=== PATIENT | male | born 1935 | race Caucasian/White ===

== ENCOUNTER 2023-02-20 16:35 | Inpatient (IN) | payer MEDICARE, SELFPAY ==
[2023-02-20] VITALS (7 sets, daily range): BP systolic 112–142; BP diastolic 70–81; PULSE 49–95; RESP 18–36; TEMP 36.3–36.8; O2SAT 96–98; BMI 28.5
--- NOTE | 2023-02-20 16:38 | ED_ITS ---
HPI - SOB/Dyspnea General: Chief Complaint: Shortness of Breath/Dyspnea Stated Complaint: sob Time Seen by Provider: 02/20/23 16:38 History of Present Illness: HPI Narrative: 87-year-old male presents emergency department via EMS personnel with complaints of increased shortness of breath and feeling like his heart is having strange beats. He states that his shortness of breath has become worse over the previous 3 days and that he has had a 25 pound weight gain in the past 2 weeks. He normally does not wear oxygen but has required oxygen via EMS personnel. Patient states that he was seen by his primary care provider and received a twelve-lead EKG today which demonstrated new onset atrial fibrillation is rate controlled. It does appear per his doctor office note that I reviewed his oxygen saturation on room air was marginal at 91%. He does have a history of hypertension and hypercholesterolemia as well as type 2 diabetes. He denies chest pain at present. He states he has had increased fatigue and malaise over the previous 3 days. Associated symptoms: Reports palpitations Review of Systems General: Reports: 10 or more systems reviewed and unremarkable except in HPI and below Card: Reports: palpitations, irregular heart rhythm and swelling of feet/ankles Resp: Reports: dyspnea and non-productive cough Physical Exam Narrative: EXAM NARRATIVE: Constitutional: the patient appeared well nourished and normally developed. He does appear to be slightly short of breath. Vital signs as documented. HENMT: Head exam is unremarkable. Neck is without jugular venous distension, thyromegaly, or carotid bruits. Carotid upstrokes are brisk bilaterally. Eye: No scleral icterus or corneal arcus noted Resp: Lungs are clear to auscultation and percussion. Decreased bilaterally to the bases. Cardio: Irregularly irregular heart rhythm, positive S1-S2,. No murmurs, rubs or gallops. 4+ bilateral lower extremity pitting edema to the bilateral knees encompassing the entire lower extremity GI: Abdominal exam reveals normal bowel sounds, no masses, no organomegaly and no aortic enlargement. Soft, nontender to palpation. No obvious palpable masses noted. No hepatomegaly appreciated. Extremity: Extremities are edematous- 4+. and both femoral and pedal pulses are normal. Moves all extremities well, she has sensation in all extremities. Neuro: Alert and oriented x4, person, place, time and situation. Cranial nerves II through XII are grossly intact, there is no focal neurological deficits that I can appreciate at present. Motor strength in the upper and lower extremities are equal and bilateral 5/5. Psych: Cooperative, calm, normal thought process, appropriate judgment. Skin: No lesions, rashes. Course Vital Signs: Vital signs: Vital Signs Temperature 97.5 F L 02/20/23 21:23 Pulse Rate 93 02/20/23 21:23 Respiratory Rate 24 H 02/20/23 21:23 Blood Pressure 142/81 02/20/23 21:23 Pulse Oximetry 96 02/20/23 21:23 Oxygen Delivery Me thod Nasal Cannula 02/20/23 21:23 Oxygen Flow Rate 2 02/20/23 17:21 MDM - SOB/Dyspnea Medical Decision Making Physical exam completed and documented, I did review the patient's laboratory evaluation as well as his chest x-ray. I contacted the hospital physician for admission for his new onset atrial fibrillation as well as his 4+ bilateral lower extremity pitting edema and his shortness of breath. Medical Records I reviewed the patient's medical records. I did review the patient's twelve-lead EKG that was obtained at his primary care provider's office at 1527 which demonstrates atrial fibrillation with a rate controlled 96 bpm. I reviewed the primary care providers note from the office visit today that the family members provided to me. Lab Data I reviewed the patient's lab results. 02/20/23 17:13 02/20/23 17:13 Labs/Radiology: Radiology Impressions Chest X-Ray 02/20/23 16:39 IMPRESSION: 1. Right basilar atelectasis versus pneumonia and small right pleural effusion. 2. Cardiomegaly. Chest CTA 02/20/23 18:44 IMPRESSION: 1. Negative for pulmonary embolus. 2. Large right and small left pleural effusions. 3. Cardiomegaly. 4. Coronary artery atherosclerotic calcifications. 5. Reflux of contrast into the intrahepatic veins suggestive of congestive heart failure. 6. Cholelithiasis. 7. Moderate ascites in the upper abdomen somewhat visualized. 8. Ascending thoracic aorta dilated to 4.4 cm. 9. Bilateral dependent atelectasis versus infiltrate. Next emphysematous changes. 10. Multilevel bridging degenerative calcifications throughout the spine. 11. Scattered subcentimeter short axis prominent mediastinal lymph nodes, nonspecific. Laboratory Results WBC 11.61 10^3/uL (3.29-11.43) H 02/20/23 17:13 RBC 4.84 10^6/uL (3.85-5.65) 02/20/23 17:13 Hgb 14.70 g/dL (11.27-16.99) 02/20/23 17:13 Hct 45.1 % (37-53) 02/20/23 17:13 MCV 93.2 fl (82-101) 02/20/23 17:13 MCH 30.4 pg (27-33) 02/20/23 17:13 MCHC 32.6 g/dL (30-55) 02/20/23 17:13 RDW 14.0 % (12.1-15.1) 02/20/23 17:13 Plt Count 248 10^3/cmm (157-399) 02/20/23 17:13 MPV 10.4 fL (7.4-10.4) 02/20/23 17:13 Neut % (Auto) 74.2 % 02/20/23 17:13 Lymph % (Auto) 13.1 % 02/20/23 17:13 [place] % (Auto) 10.4 % 02/20/23 17:13 Eos % (Auto) 1.4 % 02/20/23 17:13 Baso % (Auto) 0.5 % 02/20/23 17:13 Neut # (Auto) 8.61 10^3/uL (1.8-7.7) H 02/20/23 17:13 Lymph # (Auto) 1.5 10^3/uL (0.8-4.8) 02/20/23 17:13 [place] # (Auto) 1.2 10^3/uL (0.2-0.9) H 02/20/23 17:13 Eos # (Auto) 0.2 10^3/uL (0.0-0.8) 02/20/23 17:13 Baso # (Auto) 0.1 10^3/uL (0.0-0.1) 02/20/23 17:13 Nucleated RBC % (auto) 0 % 02/20/23 17:13 Nucleated RBCs # 0.0 /100WBC 02/20/23 17:13 PT 16.00 SECONDS (12.1-14.9) H 02/20/23 17:13 INR 1.24 (0.8-1.2) H 02/20/23 17:13 APTT 35.0 SECONDS (23.9-36.7) 02/20/23 17:13 D-Dimer 2.10 ug/mLFEU (0-0.59) H 02/20/23 17:13 Sodium 131 mmol/L (136-145) L 02/20/23 17:13 Potassium 5.0 mmol/L (3.5-5.1) 02/20/23 17:13 Chloride 99 mmol/L (98-107) 02/20/23 17:13 Carbon Dioxide 17 mmol/L (22-29) L 02/20/23 17:13 Anion Gap 20.0 (5-19) H 02/20/23 17:13 BUN 36 mg/dL (8-23) H 02/20/23 17:13 Creatinine 1.6 mg/dL (0.7-1.2) H 02/20/23 17:13 GFR Calculation Not Reportable 02/20/23 17:13 Glucose 156 mg/dL (65-115) H 02/20/23 17:13 Calculated Osmolality 284 mOsm/kg (285-295) L 02/20/23 17:13 Calcium 9.1 mg/dL (8.5-10.5) 02/20/23 17:13 Total Bilirubin 0.8 mg/dL (0.15-1.2) 02/20/23 17:13 AST 73 U/L (0-40) H 02/20/23 17:13 ALT 93 U/L (0-41) H 02/20/23 17:13 Alkaline Phosphatase 131 U/L (40-130) H 02/20/23 17:13 Troponin T Baseline 73 ng/L (0-15) H 02/20/23 17:13 NT-Pro-B Natriuret Pep 9307 pg/mL (0-450) H 02/20/23 17:13 Total Protein 5.6 g/dL (6.6-8.7) L 02/20/23 17:13 Albumin 3.8 g/dL (3.5-5.2) 02/20/23 17:13 Globulin 1.8 g/dL (1.3-4.6) 02/20/23 17:13 Influenza Type A Ag negative (Negative) 02/20/23 16:50 Influenza Type B Ag negative (Negative) 02/20/23 16:50 SARS-CoV-2 Ag (Rapid) negative (Negative) 02/20/23 16:50 All radiology interpretation(s) finalized by discharge ED provider radiology interpretation(s): FINDINGS: Pulmonary arteries: Normal. No pulmonary emboli. Aorta: Ascending thoracic aorta dilated to 4.4 cm. Veins: Reflux of contrast into the intrahepatic veins suggestive of congestive heart failure. Lungs: Bilateral dependent atelectasis versus infiltrate. Next emphysematous changes. Pleural spaces: Large right and small left pleural effusions. Heart: Cardiomegaly. Coronary arteries: Coronary artery atherosclerotic calcifications. Lymph nodes:? Scattered subcentimeter short axis prominent mediastinal lymph nodes, nonspecific. Gallbladder and bile ducts: Cholelithiasis. Intraperitoneal space: Moderate ascites in the upper abdomen somewhat visualized. Bones/joints: Multilevel bridging degenerative calcifications throughout the spine. Soft tissues: Unremarkable. CT/CT angio chest PE protcl [id number] IMPRESSION: 1. ? Negative for pulmonary embolus. 2. ? Large right and small left pleural effusions. 3. ? Cardiomegaly. 4. ? Coronary artery atherosclerotic calcifications. 5. ? Reflux of contrast into the intrahepatic veins suggestive of congestive heart failure. 6. ? Cholelithiasis. 7. ? Moderate ascites in the upper abdomen somewhat visualized. 8. ? Ascending thoracic aorta dilated to 4.4 cm. 9. ? Bilateral dependent atelectasis versus infiltrate. Next emphysematous changes. 10. ? Multilevel bridging degenerative calcifications throughout the spine. 11. ? Scattered subcentimeter short axis prominent mediastinal lymph nodes, nonspecific. ? Critical Care Time Critical Care Time: Critical Care Time: Yes Total Critical Care Time: 60 Attestation: This case had a high probability of a clinically significant, sudden, or life threatening deterioration of this patient's condition which required my full and direct attention, intervention and personal management. 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
--- NOTE | 2023-02-20 16:39 | XRR_ITS ---
PROCEDURE INFORMATION: Exam: XR Chest Exam date and time: 02/20/2023 4:55 PM Age: 87 years old Clinical indication: Dyspnea and shortness of breath TECHNIQUE: Imaging protocol: Radiologic exam of the chest. Views: 1 view. COMPARISON: No relevant prior studies available. FINDINGS: Lungs: Right basilar opacity may be atelectasis or pneumonia. The lungs are otherwise clear. Pleural spaces: A small right pleural effusion is present. Heart/Mediastinum: The heart is mildly enlarged. The aorta is mildly calcified. Bones/joints: Degenerative changes are seen in both shoulders and the thoracic spine. No acute fracture is visualized. XR/XR chest 1V portable [id number] IMPRESSION: 1. Right basilar atelectasis versus pneumonia and small right pleural effusion. 2. Cardiomegaly.
--- NOTE | 2023-02-20 16:40 | ECG_ITS ---
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 Measurements Intervals [place] Rate: 104 P: 34 MN: 198 QRS: -54 QRSD: 124 T: 101 QT: 355 QTc: 469 Interpretive Statements SINUS TACHYCARDIA LEFT AXIS DEVIATION [QRS AXIS < -30] SEPTAL MYOCARDIAL INFARCTION , OF INDETERMINATE AGE [40+ ms Q WAVE IN V1/V2] No previous ECG available for comparison Electronically Signed On 02-20-2023 19:36:44 CDT by Everardo Bolanos M.D. [id number]
[2023-02-20 17:23] LABS: Influenza A by IFA negative (Negative); Influenza B by IFA negative (Negative); SARS Covid-2 Antigen negative (Negative)
[2023-02-20 17:27] LABS: Basophils # 0.1 10^3/uL (0.0-0.1); Basophils % 0.5 %; Eosinophils # 0.2 10^3/uL (0.0-0.8); Eosinophils % 1.4 %; Hematocrit 45.1 % (37-53); Lymphocytes # 1.5 10^3/uL (0.8-4.8); Lymphocytes % 13.1 %; Mean Corpuscular HGB Conc 32.6 g/dL (30-55); Mean Corpuscular Hemoglobin 30.4 pg (27-33); Mean Corpuscular Volume 93.2 fl (82-101); Mean Platelet Volume 10.4 fL (7.4-10.4); Monocytes # 1.2 10^3/uL (0.2-0.9); Monocytes % 10.4 %; Neutrophils # 8.61 10^3/uL (1.8-7.7); Neutrophils % 74.2 %; Nucleated Red Blood Cells % 0 %; Platelet Count 248 10^3/cmm (157-399); Red Blood Count 4.84 10^6/uL (3.85-5.65); White Blood Count 11.61 10^3/uL (3.29-11.43)
[2023-02-20 17:40] LABS: INR 1.24 (0.8-1.2)
[2023-02-20 17:45] LABS: Troponin(5th) Baseline 73 ng/L (0-15)
[2023-02-20 18:04] LABS: Alanine Aminotransferase 93 U/L (0-41); Albumin Level 3.8 g/dL (3.5-5.2); Alkaline Phosphatase 131 U/L (40-130); Aspartate Amino Transferase 73 U/L (0-40); Blood Urea Nitrogen 36 mg/dL (8-23); Calcium 9.1 mg/dL (8.5-10.5); Carbon Dioxide 17 mmol/L (22-29); Chloride 99 mmol/L (98-107); Globulin 1.8 g/dL (1.3-4.6); Glucose 156 mg/dL (65-115); NT Pro B Type Natriuretic Pept 9307 pg/mL (0-450); Osmolality Calculated 284 mOsm/kg (285-295); Sodium 131 mmol/L (136-145); Total Bilirubin 0.8 mg/dL (0.15-1.2); Total Protein 5.6 g/dL (6.6-8.7)
[2023-02-20] MEDS: FUROsemide 10 mg/mL SDV 10mL 80 MG IVP (18:25)
--- NOTE | 2023-02-20 18:39 | ECG_ITS ---
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 Measurements Intervals [place] Rate: 97 P: 0 [place]: 0 QRS: -54 QRSD: 126 T: 106 QT: 373 QTc: 476 Interpretive Statements SINUS RHYTHM WITH VENTRICULAR PREMATURE COMPLEXES LEFT ANTERIOR FASCICULAR BLOCK [QRS AXIS <= -45, QR IN I, RS IN II] SEPTAL MYOCARDIAL INFARCTION , PROBABLY OLD [40+ ms Q WAVE IN V1/V2] Compared to ECG 02/20/2023 16:40:58 Ventricular premature complex(es) now present Aberrant conduction of supraventricular beat(s) now present Left anterior fascicular block now present Sinus tachycardia no longer present Left-axis deviation no longer present Myocardial infarct finding still present Electronically Signed On 02-20-2023 19:39:10 CDT by Everardo Bolanos M.D. [id number]
--- NOTE | 2023-02-20 18:44 | CTR_ITS ---
PROCEDURE INFORMATION: Exam: CTA Chest With Contrast Exam date and time: 02/20/2023 6:58 PM Age: 87 years old Clinical indication: Dyspnea and shortness of breath; Patient HX: SOB with dyspnea and afib. History of chf. ; Additional info: Dyspnea, new onset atrial fibrillation TECHNIQUE: Imaging protocol: Computed tomographic angiography of the chest with contrast. Exam focused on the arteries. 3D rendering (Not supervised by radiologist): MIP and/or 3D reconstructed images were created by the technologist. Radiation optimization: All CT scans at this facility use at least one of these dose optimization techniques: automated exposure control; mA and/or kV adjustment per patient size (includes targeted exams where dose is matched to clinical indication); or iterative reconstruction. Contrast material: OMNI 350; Contrast volume: 100 ml; Contrast route: INTRAVENOUS (IV); REPORTING DATA: Count of CT and Cardiac NM exams in prior 12 months: This patient has received 0 known CTs and 0 known cardiac nuclear medicine studies in the 12 months prior to the current study. COMPARISON: CR (CHEST, ) 02/20/2023 4:55 PM RADIATION DOSE METRICS: Total DLP (mGy-cm): 533.61 FINDINGS: Pulmonary arteries: Normal. No pulmonary emboli. Aorta: Ascending thoracic aorta dilated to 4.4 cm. Veins: Reflux of contrast into the intrahepatic veins suggestive of congestive heart failure. Lungs: Bilateral dependent atelectasis versus infiltrate. Next emphysematous changes. Pleural spaces: Large right and small left pleural effusions. Heart: Cardiomegaly. Coronary arteries: Coronary artery atherosclerotic calcifications. Lymph nodes: Scattered subcentimeter short axis prominent mediastinal lymph nodes, nonspecific. Gallbladder and bile ducts: Cholelithiasis. Intraperitoneal space: Moderate ascites in the upper abdomen somewhat visualized. Bones/joints: Multilevel bridging degenerative calcifications throughout the spine. Soft tissues: Unremarkable. CT/CT angio chest PE protcl [id number] IMPRESSION: 1. Negative for pulmonary embolus. 2. Large right and small left pleural effusions. 3. Cardiomegaly. 4. Coronary artery atherosclerotic calcifications. 5. Reflux of contrast into the intrahepatic veins suggestive of congestive heart failure. 6. Cholelithiasis. 7. Moderate ascites in the upper abdomen somewhat visualized. 8. Ascending thoracic aorta dilated to 4.4 cm. 9. Bilateral dependent atelectasis versus infiltrate. Next emphysematous changes. 10. Multilevel bridging degenerative calcifications throughout the spine. 11. Scattered subcentimeter short axis prominent mediastinal lymph nodes, nonspecific.
[2023-02-20] MEDS: iohexol 350 mg/mL 500 mL Btl (per mL) IV (19:06)
--- NOTE | 2023-02-20 19:15 | P.HP_ITS ---
Providers/Chief Complaint Admitting Physician: Dharmesh Dugan MD Chief Complaint: sob History of Present Illness Jake Ward is a 87 year old male with a past medical history of diabetes mellitus who presented to the emergency room today after being sent by his primary care physician. Patient has been experiencing generalized fatigue and malaise for the past 1 month. He has also noticed lower extremity edema and shortness of breath. States that it is extremely difficult for him to even walk within his house right now. He has additionally also been having some cough over the past 3 to 4 weeks for which she has been taking antibiotics. Reportedly COVID and flu swabs taken as outpatient were negative. He went in to follow-up with his primary care today and was noted to have A-fib on his EKG and was directed to come into the emergency room. In the ER he is noted to have sinus rhythm today, no A-fib currently detected. Patient has been on telemetry. Rate has been controlled since arrival here. He has 3+ bilateral lower extremity pitting edema. A new oxygen requirement of 2 L/min. Patient is not typically on oxygen. He is not a smoker. Does not have any past history of CAD or CHF. States that his blood sugar is usually within good control. He denies any complaints of chest pain. States that until December he was taking some herbal supplement for urinary health but then discontinued use once he started to become short of breath. He thought this may be related to his new medication. He does not recall the name of this medication at this time. Review of Systems General: Reports: 10 or more systems reviewed and unremarkable except in HPI and below Const: Denies: fever(s), chills, body aches, change in appetite, change in weight, malaise, night sweats, diaphoresis, change in sleep pattern, daytime sleepiness or snoring Eyes: Denies: change in vision, blurry vision, photophobia, eye discomfort or eye discharge ENMT: Denies: throat pain, enlarged tonsils, hoarseness, mouth pain, oral sores, dry mouth, tinnitus, nasal congestion or post nasal drip Card: Denies: chest pain, palpitations, irregular heart rhythm, edema, swelling of feet/ankles, lightheadedness, syncope, pre-syncope, dyspnea on exertion, orthopnea, leg pain with exertion or acrocyanosis Resp: Denies: dyspnea, productive cough, non-productive cough, wheezing, stridor, pain on inspiration, change in phlegm color, hemoptysis or chest congestion GI: Denies: abdominal pain, nausea, vomiting, hematemesis, coffee ground emesis, dysphagia, heartburn, diarrhea, constipation, bloating, GI cramping, change in bowel habits, pain on defecation, hematochezia or melena : Denies: flank pain, difficulty urinating, dysuria, urinary frequency, urinary urgency, urinary hesitancy, urinary dribbling, difficulty starting urination, change in urine stream, nocturia or hematuria Musc: Denies: neck pain, back pain, extremity pain, joint pain, joint swelling, joint redness, joint stiffness or limited range of motion Neuro: Denies: headache(s), numbness in extremities, weakness in extremities, sensory changes, lack of coordination, difficulty walking, frequent falls, dizziness, vertigo, confusion, Slurred speech present, difficulty communicating thoughts or seizure-like activity Psych: Denies: anxiety, depression, mood swings, panic attacks, hopelessness or irritability Endo: Denies: polyuria, polydipsia, tired all the time, cold intolerance, excessive sweating, flushing or heat intolerance Tan/Lymph: Denies: easy bruising or easy bleeding All/Imm: Denies: tongue swelling, facial swelling or acute wheezing Medications/Allergies Home Medications Medication Instructions Recorded Confirmed Last Taken Type aspirin 81 mg tablet,delayed 81 mg PO DAILY 02/21/23 02/21/23 02/20/23 History release finasteride 5 mg tablet 5 mg PO DAILY 02/21/23 02/21/23 02/20/23 History lisinopril 20 mg tablet 20 mg PO DAILY 02/21/23 02/21/23 02/20/23 History simvastatin 20 mg tablet 20 mg PO DAILY 02/21/23 02/21/23 02/20/23 History sitagliptin phosphate 100 mg 100 mg PO DAILY 02/21/23 02/21/23 02/20/23 History tablet (Januvia) Allergies Allergy/AdvReac Type Severity Reaction Status Date / Time No Known Allergies Allergy Verified 02/20/23 21:31 PFSH Acute PFSH: Medical History (Updated 02/21/23 @ 11:06 by Dharmesh Dugan MD) Diabetes HTN (hypertension) Vitals/I&O/Wt Last Vital Signs Temp 98.2 F 02/20/23 16:45 Pulse 94 02/20/23 17:21 Resp 36 H 02/20/23 17:21 BP 126/70 02/20/23 17:21 Pulse Ox 98 02/20/23 17:21 O2 Del Method Nasal Cannula 02/20/23 17:21 O2 Flow Rate 2 02/20/23 17:21 Weight last 48 hrs Weight 100.698 kg Physical Exam Narrative: EXAM NARRATIVE: General: No acute distress, AO x3, NC oxygen supplementation HEENT: PERRLA, pupils bilaterally equal and reactive Chest: scattered crackles. equal good air entry bilaterally, CVS: S1-S2 regular, no murmurs, no tachycardia, no gallops, no rubs Abdomen: Soft, nontender, no organomegaly, bowel sounds present, morbidly obese Neuro: No focal deficits, no facial deformity, AO x3, power 5/5 in all limbs ext: pitting edema B/L LE Urinary Catheter Management: Laughlin: Cath Placed During This Visit: yes Urinary Catheter Date of Insertion: 02/20/23 Urinary Catheter Time of Insertion: 18:54 Data 02/21/23 05:02 02/21/23 05:02 Other Labs: Radiology Impressions Chest X-Ray 02/20/23 16:39 IMPRESSION: 1. Right basilar atelectasis versus pneumonia and small right pleural effusion. 2. Cardiomegaly. Chest CTA 02/20/23 18:44 IMPRESSION: 1. Negative for pulmonary embolus. 2. Large right and small left pleural effusions. 3. Cardiomegaly. 4. Coronary artery atherosclerotic calcifications. 5. Reflux of contrast into the intrahepatic veins suggestive of congestive heart failure. 6. Cholelithiasis. 7. Moderate ascites in the upper abdomen somewhat visualized. 8. Ascending thoracic aorta dilated to 4.4 cm. 9. Bilateral dependent atelectasis versus infiltrate. Next emphysematous changes. 10. Multilevel bridging degenerative calcifications throughout the spine. 11. Scattered subcentimeter short axis prominent mediastinal lymph nodes, nonspecific. Laboratory Results WBC 11.61 10^3/uL (3.29-11.43) H 02/20/23 17:13 RBC 4.84 10^6/uL (3.85-5.65) 02/20/23 17:13 Hgb 14.70 g/dL (11.27-16.99) 02/20/23 17:13 Hct 45.1 % (37-53) 02/20/23 17:13 MCV 93.2 fl (82-101) 02/20/23 17:13 MCH 30.4 pg (27-33) 02/20/23 17:13 MCHC 32.6 g/dL (30-55) 02/20/23 17:13 RDW 14.0 % (12.1-15.1) 02/20/23 17:13 Plt Count 248 10^3/cmm (157-399) 02/20/23 17:13 MPV 10.4 fL (7.4-10.4) 02/20/23 17:13 Neut % (Auto) 74.2 % 02/20/23 17:13 Lymph % (Auto) 13.1 % 02/20/23 17:13 Gove % (Auto) 10.4 % 02/20/23 17:13 Eos % (Auto) 1.4 % 02/20/23 17:13 Baso % (Auto) 0.5 % 02/20/23 17:13 Neut # (Auto) 8.61 10^3/uL (1.8-7.7) H 02/20/23 17:13 Lymph # (Auto) 1.5 10^3/uL (0.8-4.8) 02/20/23 17:13 Gove # (Auto) 1.2 10^3/uL (0.2-0.9) H 02/20/23 17:13 Eos # (Auto) 0.2 10^3/uL (0.0-0.8) 02/20/23 17:13 Baso # (Auto) 0.1 10^3/uL (0.0-0.1) 02/20/23 17:13 Nucleated RBC % (auto) 0 % 02/20/23 17:13 Nucleated RBCs # 0.0 /100WBC 02/20/23 17:13 PT 16.00 SECONDS (12.1-14.9) H 02/20/23 17:13 INR 1.24 (0.8-1.2) H 02/20/23 17:13 APTT 35.0 SECONDS (23.9-36.7) 02/20/23 17:13 D-Dimer 2.10 ug/mLFEU (0-0.59) H 02/20/23 17:13 Sodium 131 mmol/L (136-145) L 02/20/23 17:13 Potassium 5.0 mmol/L (3.5-5.1) 02/20/23 17:13 Chloride 99 mmol/L (98-107) 02/20/23 17:13 Carbon Dioxide 17 mmol/L (22-29) L 02/20/23 17:13 Anion Gap 20.0 (5-19) H 02/20/23 17:13 BUN 36 mg/dL (8-23) H 02/20/23 17:13 Creatinine 1.6 mg/dL (0.7-1.2) H 02/20/23 17:13 GFR Calculation Not Reportable 02/20/23 17:13 Glucose 156 mg/dL (65-115) H 02/20/23 17:13 POC Glucose 132 mg/dL (70-110) H 02/20/23 21:28 Calculated Osmolality 284 mOsm/kg (285-295) L 02/20/23 17:13 Calcium 9.1 mg/dL (8.5-10.5) 02/20/23 17:13 Iron 28 ug/dL (59-158) L 02/20/23 19:13 TIBC 271 mcg/dl 02/20/23 19:13 % Saturation 10.3 % (20-50) L 02/20/23 19:13 Unsat Iron Binding 243 ug/dL (112-347) 02/20/23 19:13 Total Bilirubin 0.8 mg/dL (0.15-1.2) 02/20/23 17:13 AST 73 U/L (0-40) H 02/20/23 17:13 ALT 93 U/L (0-41) H 02/20/23 17:13 Alkaline Phosphatase 131 U/L (40-130) H 02/20/23 17:13 Troponin T Baseline 73 ng/L (0-15) H 02/20/23 17:13 Troponin T 120 Minute 67.87 ng/L (0-15) H 02/20/23 19:13 Delta Troponin T -5.13 ABS# (0-10) L 02/20/23 19:13 Troponin T Hi Sens 6Hr 82.99 ng/L (0-15) H 02/20/23 23:20 Troponin T Hi Sens 6Hr Delta 9.99 ng/L (0-12) 02/20/23 23:20 NT-Pro-B Natriuret Pep 9307 pg/mL (0-450) H 02/20/23 17:13 Total Protein 5.6 g/dL (6.6-8.7) L 02/20/23 17:13 Albumin 3.8 g/dL (3.5-5.2) 02/20/23 17:13 Globulin 1.8 g/dL (1.3-4.6) 02/20/23 17:13 Vitamin B12 1584 pg/mL (232-1245) H 02/20/23 19:13 Procalcitonin 0.11 ng/mL (0-0.5) 02/20/23 19:13 TSH 18.96 uIU/mL (0.27-4.20) H 02/20/23 19:13 Urine Color Other (Yellow) A 02/20/23 23:59 Urine Appearance Cloudy (CLEAR) A 02/20/23 23:59 Urine pH 5 (5-7) 02/20/23 23:59 Ur Specific [place] 1.015 (1.005-1.030) 02/20/23 23:59 Urine Protein 1+ (Negative) H 02/20/23 23:59 Urine Glucose (UA) Norm (Normal) 02/20/23 23:59 Urine Ketones 1+ (Negative) H 02/20/23 23:59 Urine Blood 3+ (Negative) H 02/20/23 23:59 Urine Nitrate Negative (Negative) 02/20/23 23:59 Urine Bilirubin Neg (Negative) 02/20/23 23:59 Urine Urobilinogen Neg mg/dL (Negative) 02/20/23 23:59 Ur Leukocyte Esterase 1+ (Negative) H 02/20/23 23:59 Urine RBC Too numerous to cnt /hpf (0-2) H 02/20/23 23:59 Urine WBC 0-4 /hpf (0-5) H 02/20/23 23:59 Ur Squamous Epith Cells None /hpf (0-5) 02/20/23 23:59 Amorphous Sediment Not Reportable 02/20/23 23:59 Urine Bacteria Trace /hpf (NONE) 02/20/23 23:59 Ur Random Sodium 108 mmol/L 02/21/23 00:00 Ur Random Potassium 19 mmol/L 02/21/23 00:00 Ur Random Chloride 122 mmol/L 02/21/23 00:00 Urine Creatinine 14 mg/dL (39-259) L 02/21/23 00:00 Influenza Type A Ag negative (Negative) 02/20/23 16:50 Influenza Type B Ag negative (Negative) 02/20/23 16:50 SARS-CoV-2 Ag (Rapid) negative (Negative) 02/20/23 16:50 A&P Assessment and plan (1) CHF (congestive heart failure): No past history. Unknown type. Symptoms and proBNP along with chest x-ray consistent with cardiomegaly and congestive heart failure. Strict input output charting, daily weights. IV Lasix 80 mg given in the ER. Laughlin catheter. IV Lasix 40 mg daily. ACS unlikely. Follow-up troponins. Troponin mildly elevated in ER most likely in setting of renal dysfunction. Start on aspirin 81 mg daily, check A1c, lipid panel. Start on statins accordingly. Check TSH, vitamin B12, folate levels. (2) Atrial fibrillation: New diagnosis. Seen in the PCPs office. Currently sinus rhythm. Telemetry. If patient has more episodes of atrial fibrillation we will plan for anticoagulation otherwise we will plan for event monitor. Currently rate controlled. Hold off on rate limiting medications. (3) Transaminitis: Most likely in setting of congestive heart failure. Check hepatitis panel, HIV. Check liver ultrasound. (4) HTN (hypertension): Goal blood pressure less than 140/90 mmHg. Blood pressures at goal currently. Hold off on antihypertensives for now as patient required diuresis. (5) SPRING (acute kidney injury): No baseline renal function present in the chart. Patient does have SPRING with uremia and metabolic acidosis currently. Cannot rule out mild SPRING and CKD. Renal ultrasound. Urine electrolytes, urine lites, urine creatinine. (6) Swelling of lower leg: Most likely in setting of congestive heart failure. Check lower limb Dopplers though DVT less likely. Plan Type 2 diabetes mellitus: Stop OHA's. Check A1c. Insulin sliding scale at low-dose protocol. Full code Cardiac carb consistent diet Heparin 5000 every 8 hourly for DVT prophylaxis. Protonix for PUD prophylaxis. Attestations Medical Necessity Statement*: > 2 midnight for management of new onset congestive heart failure and atrial fibrillation. Diagnoses CHF (congestive heart failure) I50.9 Atrial fibrillation I48.91 Transaminitis R74.01 HTN (hypertension) I10 SPRING (acute kidney injury) N17.9 Swelling of lower leg M79.89
[2023-02-20 19:39] LABS: Troponin 5 2HR 67.87 ng/L (0-15)
[2023-02-20 19:41] LABS: Troponin 5 2HR Delta -5.13 ABS# (0-10)
[2023-02-20 20:03] LABS: Procalcitonin 0.11 ng/mL (0-0.5)
[2023-02-20 21:45] LABS: Glucose Point of Care 132 mg/dL (70-110)
[2023-02-20 21:54] LABS: Iron 28 ug/dL (59-158)
[2023-02-20] MEDS: heparin 5,000 unit/mL INJ 1 mL 5000 UNIT SUBCUT (22:28)
[2023-02-20 22:37] LABS: Percent Saturation 10.3 % (20-50); Total Iron Binding Capacity 271 mcg/dl; Unsaturated Iron Binding 243 ug/dL (112-347)
--- NOTE | 2023-02-20 22:39 | ECG_ITS ---
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 Measurements Intervals [place] Rate: 89 P: -61 NE: 160 QRS: -40 QRSD: 121 T: 125 QT: 396 QTc: 484 Interpretive Statements ECTOPIC ATRIAL RHYTHM WITH FREQUENT VENTRICULAR PREMATURE COMPLEXES WITH FREQUENT SUPRAVENTRICULAR PREMATURE COMPLEXES LEFT AXIS DEVIATION [QRS AXIS < -30] MODERATE INTRAVENTRICULAR CONDUCTION DELAY [105+ ms QRS DURATION, 80+ ms Q/S IN V1/V2, NO Q AND 60+ ms R IN I/aVL/V5/V6] NONSPECIFIC ST & T-WAVE ABNORMALITY Compared to ECG 02/20/2023 18:36:43 Ectopic atrial rhythm now present Left-axis deviation now present Intraventricular conduction delay now present T-wave abnormality now present Sinus rhythm no longer present Left anterior fascicular block no longer present Myocardial infarct finding no longer present Electronically Signed On 02-20-2023 23:03:20 CDT by Everardo Bolanos M.D. [id number]
[2023-02-20 22:52] LABS: Thyroid Stimulating Hormone 18.96 uIU/mL (0.27-4.20); Vitamin B12 1584 pg/mL (232-1245)
[2023-02-20 23:52] LABS: Troponin 5 6HR 82.99 ng/L (0-15)
[2023-02-20 23:53] LABS: Troponin 5 6HR Delta 9.99 ng/L (0-12)
[2023-02-21] VITALS (10 sets, daily range): BP systolic 97–119; BP diastolic 67–93; PULSE 79–103; RESP 24–34; TEMP 36.4–37.2; O2SAT 92–97; BMI 28.0
[2023-02-21 00:49] LABS: Specific Gravity, Urine 1.015 (1.005-1.030); Urine Appearance Cloudy (CLEAR); Urine Color Other (Yellow); pH Urine 5 (5-7)
[2023-02-21 00:50] LABS: Add Urine Microscopic? YES; Bilirubin Urine Neg (Negative); Blood Urine 3+ (Negative); Glucose Urine UA Norm (Normal); Ketones Urine 1+ (Negative); Leukocyte Esterase Urine 1+ (Negative); Nitrate Urine Negative (Negative); Protein Urine 1+ (Negative); Urobilinogen Urine Neg (Negative)
[2023-02-21 00:51] LABS: RBC Urine TOO NUMEROUS TO CNT /hpf (0-2); WBC Urine 0-4 /hpf (0-5)
[2023-02-21 00:52] LABS: Add Urine Culture? Yes; Bacteria Urine TRACE /hpf
[2023-02-21 00:56] LABS: Potassium, Radom Urine 19 mmol/L; Urine Creatinine 14 mg/dL (39-259); Urine Random Chloride 122 mmol/L; Urine Random Sodium 108 mmol/L
--- NOTE | 2023-02-21 01:02 | USR_ITS ---
PROCEDURE INFORMATION: Exam: US Abdomen, Limited; Right Upper Quadrant Exam date and time: 02/21/2023 7:05 AM Age: 87 years old Clinical indication: Condition or disease; Liver condition; Other: Transaminitis TECHNIQUE: Imaging protocol: Real time ultrasound of the abdomen with image documentation. Limited exam focused on the right upper quadrant. COMPARISON: CT angio chest PE protcl [id number] 02/20/2023 6:58 PM FINDINGS: Liver: Mildly enlarged, measuring 19.1 cm. No masses. Gallbladder: Normal. No gallstones. There is no gallbladder wall thickening. Biliary ducts: Normal. No stones. No dilation. Visualized common duct measures 4 mm in diameter. Pancreas: Visualized pancreas is unremarkable. Right kidney: Simple circumscribed oval avascular anechoic cyst at the upper kidney measures 2.5 x 2.7 x 3.1 cm. Smaller avascular cyst at the lower kidney measuring 1.6 x 1.9 x 1.8 cm shows single thin septation. No solid mass. No hydronephrosis. Intraperitoneal space: Mild perihepatic ascites. US/US liver [id number] IMPRESSION: 1. Hepatomegaly. 2. Mild perihepatic ascites. 3. Couple benign-appearing right renal cysts.
[2023-02-21 01:12] LABS: Amphetamines Screen Urine Negative (Negative); Barbiturates Screen Urine Negative (Negative); Benzodiazepines Screen Urine Negative (Negative); Cocaine Screen Urine Negative (Negative); Opiate Screen Urine Negative (Negative); PCP Screen Urine Negative (Negative); THC Screen Urine Negative (Negative)
[2023-02-21 01:22] LABS: Eosinophil Urine Eosinophils Seen; Urine Eosinophil Count 2 (0-0)
[2023-02-21] MEDS: FUROsemide 10 mg/mL SDV 4mL 40 MG IVP (01:57)
[2023-02-21 05:31] LABS: Basophils # 0.1 10^3/uL (0.0-0.1); Basophils % 0.5 %; Eosinophils # 0.2 10^3/uL (0.0-0.8); Eosinophils % 1.8 %; Lymphocytes # 1.2 10^3/uL (0.8-4.8); Mean Corpuscular HGB Conc 32.7 g/dL (30-55); Mean Corpuscular Hemoglobin 29.8 pg (27-33); Mean Corpuscular Volume 90.9 fl (82-101); Mean Platelet Volume 10.5 fL (7.4-10.4); Monocytes % 8.9 %; Neutrophils # 8.42 10^3/uL (1.8-7.7); Neutrophils % 77.6 %; Nucleated Red Blood Cells % 0 %; Platelet Count 210 10^3/cmm (157-399); Red Blood Count 4.84 10^6/uL (3.85-5.65); White Blood Count 10.84 10^3/uL (3.29-11.43)
[2023-02-21 05:45] LABS: Estmated Average Glucose 166; Hemoglobin A1C 7.4 % (4.0-6.0)
--- NOTE | 2023-02-21 06:00 | USCV_ITS ---
Jake Ward Age: 87 Gender: M : 1935 Exam Date: 02/21/2023 07:27 Ordering Phys: Dharmesh Dugan MD Technologist: Momo Burton Exam Location: [facility] [place] Indication: Congestive heart failure BP: 115 / 73 HR: 86 Rhythm: Sinus Technical Quality: Adequate MEASUREMENTS (Male / Female) Normal Values 2D ECHO LVOT Diameter 2.1 cm LV Ejection Fraction MOD 2C 21.0 % LV Ejection Fraction 2C AL 18.8 % LA Diameter 4.5 cm LA Width 5.0 cm LA Height 6.2 cm RA Width 4.1 cm RA Height 7.1 cm Aorta at Sinotubular Diameter 2.7 cm IVC Diameter 2.0 cm M-MODE Aortic Annulus Diameter 4.0 cm LA Ao Ratio MM 1.1 MV E Point Septal Separation 1.8 cm DOPPLER AV Peak Velocity 109.0 cm/s LVOT Peak Velocity 62.0 cm/s AV Area Cont Eq vti 1.8 cm squared AV Area Cont Eq pk 2.1 cm squared MV Peak Velocity 96.0 cm/s MV Area PHT 9.2 cm squared Mitral E to A Ratio 2.9 MV E' Velocity 63.0 cm/s TR Peak Velocity 281.6 cm/s TR Peak Gradient 32.2 mmHg TR Mean Velocity 178.7 cm/s TR Mean Gradient 15.0 mmHg TR Velocity Time Integral 73.4 cm Right Atrial Pressure 3.0 mmHg Pulmonary Artery Systolic Pressu 34.7 mmHg PV Peak Velocity 80.0 cm/s RV Acceleration Time 0.1 s RV Ejection Time 0.2 s RV AcT/ET 0.3 FINDINGS Left Ventricle Dilated left ventricle. Severely decreased left ventricular systolic function. Left ventricular ejection fraction is estimated at 15-20 %. Severe global left ventricular hypokinesis. Abnormal diastolic function. Right Ventricle Normal right ventricular size and systolic function. Right ventricular systolic pressure 34.7 mmHg. Right Atrium Mildly increased right atrial size. Left Atrium Moderately increased left atrial size. Mitral Valve Mildly thickened mitral valve. No mitral valve stenosis. Mild mitral valve regurgitation. Aortic Valve No aortic valve stenosis. Kyap-hu-gqirfrsl aortic valve regurgitation. Tricuspid Valve Structurally normal tricuspid valve. No tricuspid valve stenosis. Mild tricuspid valve regurgitation. Pulmonic Valve Structurally normal pulmonic valve. No pulmonary valve stenosis. Nkla-mi-htsbhwvx pulmonary valve regurgitation. Pericardium No pericardial effusion. Aorta Normal size aortic root and proximal ascending aorta. IVC Normal IVC dimension with >50% respiratory change of the inferior vena cava. CONCLUSIONS 1. Dilated left ventricle. Severely decreased left ventricular systolic function. Left ventricular ejection fraction is estimated at 15-20 %. Severe global left ventricular hypokinesis. Abnormal diastolic function. 2. Moderately increased left atrial size. 3. Edfm-fu-tlmcnscr aortic and pulmonary valve regurgitation. 4. Mild pulmonary hypertension with pulmonary artery pressure estimated at 35 mm Hg. 5. No prior similar studies to compare. Fartun Vaughn MD (Electronically Signed) Final Date: 21 February 2023 11:13 S
[2023-02-21 06:04] LABS: Chol HDL Ratio 3.25 mg/dL (1.0-5.00); Cholesterol 117 mg/dL (0-200); HDL Cholesterol 36 mg/dL (60-100); LDL Cholesterol Calculated 68 mg/dL (50-129); LDL HDL Ratio 1.89 RATIO (0.00-3.22); Triglycerides 66 mg/dL (0-150)
[2023-02-21 06:10] LABS: Alanine Aminotransferase 76 U/L (0-41); Albumin Level 3.3 g/dL (3.5-5.2); Alkaline Phosphatase 118 U/L (40-130); Aspartate Amino Transferase 46 U/L (0-40); Blood Urea Nitrogen 32 mg/dL (8-23); Calcium 8.9 mg/dL (8.5-10.5); Carbon Dioxide 22 mmol/L (22-29); Chloride 97 mmol/L (98-107); Globulin 2.3 g/dL (1.3-4.6); Glucose 137 mg/dL (65-115); Magnesium 1.8 mg/dL (1.7-2.3); Osmolality Calculated 285 mOsm/kg (285-295); Phosphorus 3.8 mg/dL (2.5-4.5); Sodium 133 mmol/L (136-145); Total Bilirubin 0.9 mg/dL (0.15-1.2); Total Protein 5.6 g/dL (6.6-8.7)
[2023-02-21 06:23] LABS: Folate Level > 20.0 ng/mL (4.5-32.2)
[2023-02-21 06:26] LABS: Glucose Point of Care 127 mg/dL (70-110)
[2023-02-21] MEDS: heparin 5,000 unit/mL INJ 1 mL 5000 UNIT SUBCUT ×2 (09:06→20:54)
[2023-02-21] MEDS: pantoprazole DR 40 mg Tablet PO (09:07)
[2023-02-21] MEDS: finasteride 5 mg Tablet PO (10:46)
[2023-02-21 11:53] LABS: Free T4 Free Thyroxine 1.05 ng/dL (0.82-1.77); T3 Free 1.6 PG/ML (2.0-4.4)
--- NOTE | 2023-02-21 15:07 | PM.PN ---
Subjective Subjective: No acute events overnight. Patient seen today morning with multiple family numbers at bedside. Currently on room air. States feeling better. States lower limb swelling seems to have gone down. Denies any nausea, vomiting, headache. Remains in normal sinus rhythm, rate controlled, vitals appreciated. Vitals/I&O/Wt Last Vital Signs Temp 97.5 F L 02/21/23 11:30 Pulse 83 02/21/23 11:40 Resp 24 H 02/21/23 11:30 BP 106/67 02/21/23 11:30 Pulse Ox 94 02/21/23 11:40 O2 Del Method Room Air 02/21/23 11:40 O2 Flow Rate 2 02/20/23 17:21 02/21/23 02/21/23 02/21/23 06:59 14:59 22:59 Intake Total 120 / 120 680 / 680 Output Total 3500 / 4500 1050 / 1050 Balance -3380 / -4380 -370 / -370 Weight last 48 hrs Weight 99.246 kg Weight 99.246 kg Weight 100.698 kg Physical Exam Narrative: EXAM NARRATIVE: General: No acute distress, AO x3, on RA HEENT: PERRLA, pupils bilaterally equal and reactive Chest: scattered crackles. equal good air entry bilaterally, CVS: S1-S2 regular, no murmurs, no tachycardia, no gallops, no rubs Abdomen: Soft, nontender, no organomegaly, bowel sounds present, morbidly obese Neuro: No focal deficits, no facial deformity, AO x3, power 5/5 in all limbs ext: pitting edema B/L LE Urinary Catheter Management: Laughlin: Cath Placed During This Visit: yes Reason for Continuing Indwelling Catheter: Accurate Measurement of Urinary Output in Critically Ill Patients Urinary Catheter Date of Insertion: 02/20/23 Urinary Catheter Time of Insertion: 18:54 Data 02/21/23 05:02 02/21/23 05:02 Micro: Microbiology 02/21/23 00:00 Bacterial Antigens - Final Urine Kidney A&P Assessment and plan (1) CHF (congestive heart failure): No past history. Acute on chronic systolic and diastolic heart failure. Fluid restriction up to 1500 cc. Strict input output charting, daily weights. Continue with Laughlin catheter. Switch to oral Lasix 40 mg from tomorrow. Echocardiogram shows severely depressed EF of 15 to 20%, severe LV hypokinesia, abnormal diastolic function with RVSP of 34.7 mmHg, mild to moderate AI, mild to moderate pulmonary regurgitation. ACS unlikely. Troponin cycled and negative. But given severely depressed EF cannot rule out ischemic etiology. Patient will need Lexiscan stress test for further evaluation. N.p.o. after midnight on Thursday night. Continue with aspirin 81 mg daily, home dose of statin. Appreciate A1c, lipid panel results. TSH found to be elevated. Check free T3 and free T4. Will start on methimazole versus levothyroxine as per the results (2) Atrial fibrillation: New diagnosis. Seen in the PCPs office. Currently sinus rhythm. Telemetry. If patient has more episodes of atrial fibrillation we will plan for anticoagulation otherwise we will plan for event monitor. Currently rate controlled. Hold off on rate limiting medications. (3) Transaminitis: Most likely in setting of congestive heart failure. Check hepatitis panel, HIV. Appreciate liver ultrasound with concerns for congestive hepatomegaly (4) HTN (hypertension): Goal blood pressure less than 140/90 mmHg. Blood pressures at goal currently. Hold off on antihypertensives for now as patient required diuresis. Once patient is more euvolemic we will plan to start on guideline directed medical therapy for congestive heart failure. (5) SPRING (acute kidney injury): No baseline renal function present in the chart. Cannot rule out SPRING on CKD versus CKD. Slight improvement today. Resolution of metabolic acidosis. Obstructive nephropathy ruled out. Is possible that patient is getting close to his baseline renal functions. Appreciate urine studies. (6) Swelling of lower leg: Resolved. Insetting of congestive heart failure. Plan Type 2 diabetes mellitus: Stop OHA's. Appreciate A1c. Insulin sliding scale at low-dose protocol. Full code Cardiac carb consistent diet Heparin 5000 every 8 hourly for DVT prophylaxis. Protonix for PUD prophylaxis. Attestations Medical Necessity Statement*: Requires further hospitalization for management of severe LV dysfunction leading to congestive heart failure while ischemic etiology is ruled out, SPRING versus CKD Diagnoses CHF (congestive heart failure) I50.9 Atrial fibrillation I48.91 Transaminitis R74.01 HTN (hypertension) I10 SPRING (acute kidney injury) N17.9 Swelling of lower leg M79.89
--- NOTE | 2023-02-21 15:12 | ECG_ITS ---
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 Interpretive Statements NAME OF STUDY: LEXISCAN SESTAMIBI STRESS TEST INDICATION: New CHF, Chest Pain,PROCEDURE: At the baseline, the EKG revealed normal sinus rhythm with a poor R wave progression. Possible old septal NE. Frequent PVCs. Minimal left axis deviation. Nonspecific IVCD. Nonspecific T wave change. The baseline heart was 88 bpm with a blood pressue of 143/79 mm of Hg Lexiscan was infused over a period of 20 seconds. A total of 0.4 milligrams of Lexiscan was infused. The stress phase was continued for a total of 5 minutes. Heart rate at the end of the stress phase was 90 bpm with a blood pressure 114/81 mm of Hg. The EKG at the peak infusion revealed no significant changes. Sestamibi was injected 20 seconds after the Lexiscan infusion. Heart rate at the end of the recovery phase was 87 bpm with a blood pressure of 111/79 mm of Hg. CONCLUSION: 1. No significant EKG changes with the LexiScan infusion 2. No LexiScan induced chest pain or cardiac arrhythmia 3. Normal blood pressure and heart rate response 4. Sestamibi/sestamibi perfusion scan pending; see separate report. Electronically Signed On 02-28-2023 14:37:00 WATER OPERATOR by Ritchie Graham M.D. [id number]
[2023-02-21 16:30] LABS: Alcohol Level < 10 mg/dL (0-10)
[2023-02-21 17:28] LABS: Glucose Point of Care 194 mg/dL (70-110)
[2023-02-21] MEDS: insulin lispro 100 unit/1 mL SUBCUT ×2 (17:50→20:53)
[2023-02-21 20:42] LABS: Glucose Point of Care 184 mg/dL (70-110)
[2023-02-22] VITALS (10 sets, daily range): BP systolic 96–118; BP diastolic 56–76; PULSE 70–96; RESP 20–33; TEMP 36.5–37.1; O2SAT 95–97
[2023-02-22 03:46] LABS: Basophils # 0.1 10^3/uL (0.0-0.1); Basophils % 0.8 %; Eosinophils # 0.2 10^3/uL (0.0-0.8); Eosinophils % 2.4 %; Hematocrit 43.7 % (37-53); Lymphocytes # 1.6 10^3/uL (0.8-4.8); Lymphocytes % 17.1 %; Mean Corpuscular HGB Conc 31.8 g/dL (30-55); Mean Corpuscular Hemoglobin 29.6 pg (27-33); Mean Corpuscular Volume 93.2 fl (82-101); Mean Platelet Volume 10.3 fL (7.4-10.4); Monocytes % 10.4 %; Neutrophils # 6.38 10^3/uL (1.8-7.7); Nucleated Red Blood Cells % 0 %; Platelet Count 207 10^3/cmm (157-399); Red Blood Count 4.69 10^6/uL (3.85-5.65); White Blood Count 9.24 10^3/uL (3.29-11.43)
[2023-02-22 04:12] LABS: Alanine Aminotransferase 73 U/L (0-41); Albumin Level 3.3 g/dL (3.5-5.2); Alkaline Phosphatase 110 U/L (40-130); Aspartate Amino Transferase 41 U/L (0-40); Blood Urea Nitrogen 34 mg/dL (8-23); Calcium 9.1 mg/dL (8.5-10.5); Carbon Dioxide 26 mmol/L (22-29); Chloride 101 mmol/L (98-107); Globulin 2.3 g/dL (1.3-4.6); Glucose 85 mg/dL (65-115); Osmolality Calculated 291 mOsm/kg (285-295); Sodium 137 mmol/L (136-145); Total Bilirubin 0.7 mg/dL (0.15-1.2); Total Protein 5.6 g/dL (6.6-8.7)
[2023-02-22 04:16] LABS: Magnesium 2.1 mg/dL (1.7-2.3); Phosphorus 4.6 mg/dL (2.5-4.5)
[2023-02-22] MEDS: levothyroxine 50 mcg Tablet PO (05:19)
[2023-02-22 06:32] LABS: Glucose Point of Care 93 mg/dL (70-110)
[2023-02-22] MEDS: atorvastatin 40 mg Tablet 20 MG PO (09:06)
[2023-02-22] MEDS: finasteride 5 mg Tablet PO (09:06)
[2023-02-22] MEDS: pantoprazole DR 40 mg Tablet PO (09:06)
[2023-02-22] MEDS: aspirin 81 mg EC Tablet PO (09:06)
[2023-02-22] MEDS: heparin 5,000 unit/mL INJ 1 mL 5000 UNIT SUBCUT ×2 (09:07→20:29)
[2023-02-22 12:08] LABS: Glucose Point of Care 313 mg/dL (70-110)
[2023-02-22] MEDS: FUROsemide 10 mg/mL SDV 4mL 40 MG IVP (12:48)
[2023-02-22] MEDS: insulin lispro 100 unit/1 mL SUBCUT ×3 (12:48→20:27)
[2023-02-22] MEDS: metoprolol tartrate 25 mg Tablet 12.5 MG PO ×2 (12:48→20:26)
--- NOTE | 2023-02-22 14:39 | P.PN_ITS ---
Subjective Subjective: No acute events overnight. Patient has remained hemodynamically stable and afebrile. Still having difficulty completely flat but states doing better. Continues to remain on 2 L oxygen supplementation saturating more than 95%. Overall 4.3 L negative. Family at bedside. Blood work appreciated stable CBC and CMP with creatinine stable at 1.5 without any Electrolyte abnormalities. Vitals/I&O/Wt Last Vital Signs Temp 97.8 F 02/22/23 11:41 Pulse 89 02/22/23 11:41 Resp 22 H 02/22/23 11:41 BP 114/68 02/22/23 11:41 Pulse Ox 97 02/22/23 11:41 O2 Del Method Nasal Cannula 02/22/23 11:41 O2 Flow Rate 1.5 02/22/23 08:00 02/21/23 02/22/23 02/22/23 23:59 06:59 14:59 Intake Total 480 / 480 Output Total Balance 480 / 480 Weight last 48 hrs Weight 94.892 kg Weight 94.529 kg Weight 99.246 kg Weight 99.246 kg Weight 100.698 kg Physical Exam Narrative: EXAM NARRATIVE: General: No acute distress, AO x3, on RA HEENT: PERRLA, pupils bilaterally equal and reactive Chest: scattered crackles. equal good air entry bilaterally, CVS: S1-S2 regular, no murmurs, no tachycardia, no gallops, no rubs Abdomen: Soft, nontender, no organomegaly, bowel sounds present, morbidly obese Neuro: No focal deficits, no facial deformity, AO x3, power 5/5 in all limbs ext: pitting edema B/L LE Urinary Catheter Management: Laughlin: Cath Placed During This Visit: yes Reason for Continuing Indwelling Catheter: Accurate Measurement of Urinary Output in Critically Ill Patients Urinary Catheter Date of Insertion: 02/20/23 Urinary Catheter Time of Insertion: 18:54 Data 02/22/23 03:29 02/22/23 03:29 Micro: Microbiology 02/20/23 23:59 Urine Culture - Preliminary Urine,Clean Catch 02/21/23 00:00 Bacterial Antigens - Final Urine Kidney A&P Assessment and plan (1) CHF (congestive heart failure): No past history. Acute on chronic systolic and diastolic heart failure. Fluid restriction up to 1500 cc. Strict input output charting, daily weights. Continue with Laughlin catheter. IV Lasix 40 mg one-time today. Switch to oral Lasix 40 mg from tomorrow. Echocardiogram shows severely depressed EF of 15 to 20%, severe LV hypokinesia, abnormal diastolic function with RVSP of 34.7 mmHg, mild to moderate AI, mild to moderate pulmonary regurgitation. ACS unlikely. Troponin cycled and negative. But given severely depressed EF cannot rule out ischemic etiology. Patient will need Lexiscan stress test for further evaluation. N.p.o. after midnight today. Patient is agreeable. Continue with aspirin 81 mg daily, home dose of statin. Appreciate A1c, lipid panel results. TSH found to be elevated. T3 low, free T4 borderline normal. Started on levothyroxine 50 mcg oral daily. Most likely will need a repeat thyroid profile to be done in next 1 month. Patient did have 1 episode of nonsustained V. tach on quality assurance monitor final yesterday. Patient would most likely benefit from LifeVest on discharge. We will consult cardiology. (2) Atrial fibrillation: New diagnosis. Seen in the PCPs office. Currently sinus rhythm. Telemetry. If patient has more episodes of atrial fibrillation we will plan for anticoagulation otherwise we will plan for event monitor. (3) Transaminitis: Most likely in setting of congestive heart failure. Check hepatitis panel, HIV. Appreciate liver ultrasound with concerns for congestive hepatomegaly (4) HTN (hypertension): Goal blood pressure less than 140/90 mmHg. Blood pressures at goal currently. Start on metoprolol 12.5 mg twice daily today. We will start patient on guidel ine based medical therapy gradually. Uptitrate accordingly. (5) SPRING (acute kidney injury): No baseline renal function present in the chart. Most likely chronic kidney disease with baseline creatinine of around 1.5. Medical reconciliation done for nephrotoxic drugs. Check BMP daily. Will need to monitor electrolytes as patient is on new diuretics. Obstructive nephropathy ruled out. (6) Swelling of lower leg: Resolved. Insetting of congestive heart failure. Plan Nonsustained V. tach: Had 1 episode of nonsustained V. tach on quality assurance monitor final. Most likely in setting of severe congestive heart failure. Continue quality assurance monitor final. Keep potassium around 4, magnesium around 2. Type 2 diabetes mellitus: Stop OHA's. A1c found to be around 7.3. Continue with insulin sliding scale at low-dose protocol. Full code Cardiac carb consistent diet Heparin 5000 every 8 hourly for DVT prophylaxis. Protonix for PUD prophylaxis. Attestations Medical Necessity Statement*: Requires further hospitalization for work-up and management of new onset congestive heart failure while ACS is ruled out and guideline directed medical therapy is added Diagnoses CHF (congestive heart failure) I50.9 Atrial fibrillation I48.91 Transaminitis R74.01 HTN (hypertension) I10 SPRING (acute kidney injury) N17.9 Swelling of lower leg M79.89
[2023-02-22 15:40] LABS: HIV 1 & 2 Antibody Non-Reactive (Non-Reactiv); HIV 1 & 2 Antigen Non-Reactive (Non-Reactiv)
[2023-02-22 15:52] LABS: Hepatitis A Antibody IgM Non-Reactive (Nonreactive); Hepatitis B Core AB, Total Non-Reactive (Nonreactive); Hepatitis B Surface AB 3.5 (11.5-1000); Hepatitis B Surface Antigen Non-Reactive (Nonreactive); Hepatitis C Virus Antibody Non-Reactive (Nonreactive)
[2023-02-22 17:25] LABS: Glucose Point of Care 167 mg/dL (70-110)
[2023-02-22 21:07] LABS: Glucose Point of Care 249 mg/dL (70-110)
[2023-02-23] VITALS (11 sets, daily range): BP systolic 104–129; BP diastolic 68–94; PULSE 75–89; RESP 19–33; TEMP 36.1–36.6; O2SAT 90–98
[2023-02-23 04:32] LABS: Basophils # 0.1 10^3/uL (0.0-0.1); Basophils % 0.6 %; Eosinophils # 0.1 10^3/uL (0.0-0.8); Hematocrit 47.8 % (37-53); Lymphocytes # 1.3 10^3/uL (0.8-4.8); Lymphocytes % 12.6 %; Mean Corpuscular HGB Conc 31.8 g/dL (30-55); Mean Corpuscular Hemoglobin 29.4 pg (27-33); Mean Corpuscular Volume 92.5 fl (82-101); Mean Platelet Volume 10.9 fL (7.4-10.4); Monocytes # 1.1 10^3/uL (0.2-0.9); Monocytes % 10.7 %; Neutrophils % 74.7 %; Nucleated Red Blood Cells % 0 %; Platelet Count 262 10^3/cmm (157-399); Red Blood Count 5.17 10^6/uL (3.85-5.65); White Blood Count 9.91 10^3/uL (3.29-11.43)
[2023-02-23 04:51] LABS: Alanine Aminotransferase 144 U/L (0-41); Albumin Level 3.6 g/dL (3.5-5.2); Alkaline Phosphatase 174 U/L (40-130); Anion Gap 16.4 (5-19); Aspartate Amino Transferase 155 U/L (0-40); Blood Urea Nitrogen 38 mg/dL (8-23); Calcium 9.2 mg/dL (8.5-10.5); Carbon Dioxide 26 mmol/L (22-29); Chloride 99 mmol/L (98-107); Globulin 2.3 g/dL (1.3-4.6); Glucose 88 mg/dL (65-115); Osmolality Calculated 292 mOsm/kg (285-295); Potassium 4.4 mmol/L (3.5-5.1); Sodium 137 mmol/L (136-145); Total Bilirubin 1.2 mg/dL (0.15-1.2); Total Protein 5.9 g/dL (6.6-8.7)
[2023-02-23 04:53] LABS: Magnesium 2.2 mg/dL (1.7-2.3); Phosphorus 4.1 mg/dL (2.5-4.5)
[2023-02-23] MEDS: levothyroxine 50 mcg Tablet PO (05:17)
[2023-02-23 07:16] LABS: Glucose Point of Care 103 mg/dL (70-110)
[2023-02-23] MEDS: atorvastatin 40 mg Tablet 20 MG PO (09:25)
[2023-02-23] MEDS: metoprolol tartrate 25 mg Tablet 12.5 MG PO ×2 (09:25→21:06)
[2023-02-23] MEDS: aspirin 81 mg EC Tablet PO (09:26)
[2023-02-23] MEDS: finasteride 5 mg Tablet PO (09:26)
[2023-02-23] MEDS: pantoprazole DR 40 mg Tablet PO (09:26)
[2023-02-23] MEDS: heparin 5,000 unit/mL INJ 1 mL 5000 UNIT SUBCUT ×2 (09:26→21:06)
--- NOTE | 2023-02-23 09:35 | PC.NURSE ---
Provider ordered PT evaluate and treat. Order entered.
[2023-02-23] MEDS: regadenoson 0.4 Mg/5 ml Syringe IVP (10:56)
[2023-02-23 12:44] LABS: Glucose Point of Care 114 mg/dL (70-110)
[2023-02-23] MEDS: FUROsemide 10 mg/mL SDV 4mL 40 MG IVP (12:56)
--- NOTE | 2023-02-23 13:40 | PM.PN ---
Subjective Subjective: Patient endorses shortness of breath but states symptoms are improving. Denies chest pain, fevers, or chills. Denies lower extremity edema. Reports FOSTER for the past year. NPO for stress testing today. Medications: Reviewed: Yes Vitals/I&O/Wt Last Vital Signs Temp 97.5 F L 02/23/23 12:00 Pulse 75 02/23/23 12:00 Resp 31 H 02/23/23 12:00 BP 104/83 02/23/23 12:00 Pulse Ox 91 02/23/23 12:00 O2 Del Method Room Air 02/23/23 12:00 O2 Flow Rate 2 02/23/23 08:00 02/22/23 02/23/23 02/23/23 22:59 06:59 14:59 Intake Total 360 / 840 450 / 1290 240 / 240 Output Total 1350 / 1350 Balance -990 / -510 450 / -60 240 / 240 Weight last 48 hrs Weight 94.892 kg Weight 94.529 kg Physical Exam Narrative: General: Patient is awake and alert. Very pleasant. Head: Normocephalic. Atraumatic. EOM intact. Neck: Slightly elevated JVD. Cardiovascular: RRR. No gallops. No murmurs. No peripheral edema. Lungs: Tachypnea with increased work of breathing, accessory muscle use and moderate respiratory difficulty when speaking. Skin: No jaundice. No rashes. Abdomen: Normal bowel sounds, abdomen soft and nontender. Genito Urinary: Genital exam not performed since complaints not related. Rectal: Rectal exam not performed since no symptoms indicated blood loss. Extremities: No cyanosis or clubbing. Musculoskeletal: No erythematous joints. Neurological: Moves all 4 extremities. No myoclonus. Urinary Catheter Management: Laughlin: Cath Placed During This Visit: yes Reason for Continuing Indwelling Catheter: Accurate Measurement of Urinary Output in Critically Ill Patients Urinary Catheter Date of Insertion: 02/20/23 Urinary Catheter Time of Insertion: 18:54 Data 02/23/23 03:42 02/23/23 03:42 Micro: Microbiology 02/20/23 23:59 Urine Culture - Final Urine,Clean Catch A&P Assessment and plan (1) CHF (congestive heart failure): Acute HFrEF Cardiomyopathy, etiology unclear, he has RF for CAD MPS today, plan for cardiology consult Continue beta diann Continue IV Lasix Strict I&O Daily weights Advance goal directed medical therapy Supplemental oxygen as needed, will likely need home O2 eval prior to discharge (2) NSVT (nonsustained ventricular tachycardia): At risk for arrhythmia Will see if cardiology recommends [facility] [employer] [facility] electrolytes (3) Atrial fibrillation: Per report from PCP office, continue monitoring w/ telemetry for now Continue metoprolol for rate control Will need to decide on anticoagulation if atrial fibrillation rhythm is confirmed (4) 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 (5) HTN (hypertension): Continue metoprolol (6) Diabetes: A1c 7.4 Was on Januvia SSI (7) SPRING (acute kidney injury): Probably not SPRING, suspected CKD Monitor renal function Renally dose medications (8) Abnormal thyroid blood test: TFTs abnormal on admission, started on Levothyroxine although thyroxine level normal Will need repeat TFT in 4-6 weeks Plan DVT ppx: Heprin Code: Full Attestations Medical Necessity Statement*: Patient requires ongoing hospitalization for IV diuresis, stress test, telemetry, cardiology evaluation and supportive care. Coding Level of Care Code Acute Code for g Fwd Diagnoses CHF (congestive heart failure) I50.9 NSVT (nonsustained ventricular tachycardia) I47.29 Atrial fibrillation I48.91 Transaminitis R74.01 HTN (hypertension) I10 Diabetes E11.9 SPRING (acute kidney injury) N17.9 Abnormal thyroid blood test R79.89
--- NOTE | 2023-02-23 15:13 | NMCV_ITS ---
NM adi perf SPECT r/s* [id number] Jake Ward Age: 87 Gender: M : 1935 Exam Date: 02/23/2023 10:22 Ordering Phys: Dharmesh Dugan MD Technologist: JUWAN Sanford Exam Location: [facility] Indications: CHEST PAIN STRESS TEST Please see separate stress test report in [facility] for full findings IMAGE PROTOCOL Rest/Stress 1 Lexiscan Day Radiopharmaceutical Dose (mCi) Administration Site Administered by Rest: Tc-99m 11.0 IV JUWAN Sanford Sestamibi Stress:Tc-99m 32.2 IV JUWAN Dutta Sestamibi Rest: 23-Feb-2023 60 Discovery 630 Stress: 23-Feb-2023 30 Discovery 630 0.4mg Lexiscan. Images obtained in supine and prone position. SPECT RESULTS Technical Quality: Excellent Raw Data Analysis: Normal Image Corrections: No attenuation or motion correction applied Summed Stress Score: 8 Summed Rest Score: 7 Summed Difference Score: 2 PERFUSION FINDINGS Moderate area of moderately decreased tracer uptake in the mid and basal and mid inferior, basal and mid inferolateral and apical lateral regions. Subtle areas of reversibility was noted in the basal inferior and apical lateral regions. FUNCTIONAL RESULTS (calculated via Gated SPECT) Stress Image LV EF (%): 26 Stress EDV (mL):266 TID: 0.93 Stress ESV (mL):197 FUNCTIONAL FINDINGS: Segmental wall motion analysis revealed diffuse hypokinesia of the left ventricle. IMPRESSIONS 1. Myocardial perfusion imaging revealing moderate area of moderately decreased tracer uptake in the inferior, inferolateral and apical lateral regions with some reversibility, suggesting myocardial scarring the distribution of the left circumflex artery/right coronary artery was with some small areas of larry-infarction ischemia. 2. Markedly diminished LV ejection fraction 26%. 3. LV wall motion abnormalities as mentioned above. 4. Markedly dilated LV cavity with an end-systolic volume of 197 mL No similar previous studies are available for comparison Dr Ritchie Graham MD [facility] (Electronically Signed) Final Date: 23 February 2023 14:09 S
[2023-02-23 16:49] LABS: Glucose Point of Care 248 mg/dL (70-110)
[2023-02-23] MEDS: insulin lispro 100 unit/1 mL SUBCUT ×2 (17:17→21:05)
--- NOTE | 2023-02-23 18:34 | PM.CONSULT ---
Providers/Reason For Consult Consulting Physician/Specialty*: Everardo Bolanos MD/ Cardiology Reason for Consult*: Congestive heart failure Requesting Physician: Dr Siddiqui Attending Physician: Connor Siddiqui MD History of Present Illness History of Present Illness Jake Ward is a 87 year old male with no prior CAD history secondary to malaise, lower extremity edema, shortness of breath. There was also concern for atrial fibrillation. He denies chest pain. He was found to have transaminitis as well. Echo showed severely reduced LV systolic function. EF of 15-20%. He is still short of breath. Troponins increased slightly from 73 at baseline to 82 at 6 hours. 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 He also has CKD. Review of Systems General: Reports: 10 or more systems reviewed and unremarkable except in HPI and below Const: Denies: fever(s), chills, body aches, change in appetite, change in weight, malaise, night sweats, diaphoresis, change in sleep pattern, daytime sleepiness or snoring Eyes: Denies: change in vision, blurry vision, photophobia, eye discomfort or eye discharge ENMT: Denies: throat pain, enlarged tonsils, hoarseness, mouth pain, oral sores, dry mouth, tinnitus, nasal congestion or post nasal drip Card: Reports: edema and dyspnea on exertion; Denies: chest pain, palpitations, irregular heart rhythm, swelling of feet/ankles, lightheadedness, syncope, pre-syncope, orthopnea, leg pain with exertion or acrocyanosis Resp: Denies: dyspnea, productive cough, non-productive cough, wheezing, stridor, pain on inspiration, change in phlegm color, hemoptysis or chest congestion GI: Denies: abdominal pain, nausea, vomiting, hematemesis, coffee ground emesis, dysphagia, heartburn, diarrhea, constipation, bloating, GI cramping, change in bowel habits, pain on defecation, hematochezia or melena : Denies: flank pain, difficulty urinating, dysuria, urinary frequency, urinary urgency, urinary hesitancy, urinary dribbling, difficulty starting urination, change in urine stream, nocturia or hematuria Musc: Denies: neck pain, back pain, extremity pain, joint pain, joint swelling, joint redness, joint stiffness or limited range of motion Neuro: Denies: headache(s), numbness in extremities, weakness in extremities, sensory changes, lack of coordination, difficulty walking, frequent falls, dizziness, vertigo, confusion, Slurred speech present, difficulty communicating thoughts or seizure-like activity Psych: Denies: anxiety, depression, mood swings, panic attacks, hopelessness or irritability Endo: Denies: polyuria, polydipsia, tired all the time, cold intolerance, excessive sweating, flushing or heat intolerance Tan/Lymph: Denies: easy bruising or easy bleeding All/Imm: Denies: tongue swelling, facial swelling or acute wheezing Medications/Allergies Home Medications Medication Instructions Recorded Confirmed Last Taken Type aspirin 81 mg tablet,delayed 81 mg PO DAILY 02/21/23 02/21/23 02/20/23 History release finasteride 5 mg tablet 5 mg PO DAILY 02/21/23 02/21/23 02/20/23 History lisinopril 20 mg tablet 20 mg PO DAILY 02/21/23 02/21/23 02/20/23 History simvastatin 20 mg tablet 20 mg PO DAILY 02/21/23 02/21/23 02/20/23 History sitagliptin phosphate 100 mg 100 mg PO DAILY 02/21/23 02/21/23 02/20/23 History tablet (Januvia) Allergies Allergy/AdvReac Type Severity Reaction Status Date / Time No Known Allergies Allergy Verified 02/20/23 21:31 Current Medications Generic Name Dose Route Start Last Admin Trade Name Shanq PRN Reason Stop Dose Admin Aspirin 81 mg 02/22/23 09:00 02/23/23 09:26 Aspirin 81 Mg Ec Tablet PO 81 mg DAILY STEWART Administration Atorvastatin Calcium 20 mg 02/22/23 09:00 02/23/23 09:25 Atorvastatin 40 Mg Tablet PO 20 mg DAILY STEWART Administration Finasteride 5 mg 02/21/23 10:25 02/23/23 09:26 Finasteride 5 Mg Tablet PO 5 mg DAILY STEWART Administration Furosemide 40 mg 02/22/23 12:30 02/23/23 12:56 Furosemide 10 Mg/Ml Sdv 4ml IVP 40 mg Q24H STEWART Administration Heparin Sodium (Porcine) 5,000 unit 02/20/23 21:23 02/23/23 09:26 Heparin 5,000 Unit/Ml Inj 1 Ml SUBCUT 5,000 unit Q12H STEWART Administration Insulin Human Lispro 0 unit 02/21/23 18:00 02/23/23 17:17 Insulin Lispro 100 Unit/1 Ml SUBCUT 6 unit WM&BEDTIME STEWART Administration Protocol Levothyroxine Sodium 50 mcg 02/22/23 06:00 02/23/23 05:17 Levothyroxine 50 Mcg Tablet PO 50 mcg QAM STEWART Administration Metoprolol Tartrate 12.5 mg 02/22/23 12:20 02/23/23 09:25 Metoprolol Tartrate 25 Mg Tablet PO 12.5 mg BID@0900,2100 STEWART Administration Pantoprazole Sodium 40 mg 02/21/23 09:00 02/23/23 09:[address] 40 Mg Tablet PO 40 mg DAILY STEWART Administration PFSH Acute PFSH: Medical History Acute dyspnea Diabetes HTN (hypertension) Swelling of lower leg Vitals/I&O/Wt Last Vital Signs Temp 97.4 F L 02/23/23 16:00 Pulse 77 02/23/23 16:00 Resp 20 H 02/23/23 16:00 BP 112/79 02/23/23 16:00 Pulse Ox 90 02/23/23 16:00 O2 Del Method Room Air 02/23/23 16:00 O2 Flow Rate 2 02/23/23 08:00 02/23/23 02/23/23 02/23/23 06:59 14:59 22:59 Intake Total 450 / 1290 240 / 240 240 / 480 Output Total 1500 / 1500 Balance 450 / -60 240 / 240 -1260 / -1020 Weight last 48 hrs Weight 210 lb Weight 209 lb 3.2 oz Weight 208 lb 6.4 oz Physical Exam Narrative: GENERAL: Patient is alert, awake and oriented x3. [] NECK: No jugular vein distension. [] HEENT: No cyanosis. No icterus. No pallor. [] HEART: Regular S1 and S2. No murmur, rub or gallop. [] LUNGS: Diminished air entry CENTRAL NERVOUS SYSTEM: Grossly nonfocal. [] EXTREMITIES: Lower extremities with 1-2+ edema bilaterally. Urinary Catheter Management: Laughlin: Cath Placed During This Visit: yes Reason for Continuing Indwelling Catheter: Accurate Measurement of Urinary Output in Critically Ill Patients Urinary Catheter Date of Insertion: 02/20/23 Urinary Catheter Time of Insertion: 18:54 Data 02/24/23 04:44 02/24/23 10:28 Micro: Microbiology 02/20/23 23:59 Urine Culture - Final Urine,Clean Catch A&P Assessment and plan (1) CHF (congestive heart failure): (2) Transaminitis: (3) HTN (hypertension): (4) SPRING (acute kidney injury): (5) Diabetes: Plan We will continue medical therapy at this time. I did discuss with patient all the options including invasive coronary angiogram. Shared decision made to continue with medical therapy at this time. We will uptitrate diuretic therapy as patient is volume overloaded at this time. Close I and O's. Beta-diann therapy. Patient will need LifeVest at time of discharge that has been having and nonsustained VT episodes. Thank you for involving us with care of this patient. We will continue to follow. Please will call with questions. Consult Attestations Medical Necessity Statement: Care expected to cross 2 midnights. Coding Level of Care Code Acute Code for [facility] Fwd Diagnoses CHF (congestive heart failure) I50.9 Transaminitis R74.01 HTN (hypertension) I10 SPRING (acute kidney injury) N17.9 Diabetes E11.9
[2023-02-23 20:52] LABS: Glucose Point of Care 234 mg/dL (70-110)
[2023-02-24] VITALS (11 sets, daily range): BP systolic 95–116; BP diastolic 71–84; PULSE 73–90; RESP 17–32; TEMP 36.5–36.7; O2SAT 93–96; BMI 26.9
[2023-02-24 05:15] LABS: Basophils # 0.1 10^3/uL (0.0-0.1); Basophils % 0.5 %; Eosinophils # 0.1 10^3/uL (0.0-0.8); Eosinophils % 0.9 %; Hematocrit 45.6 % (37-53); Lymphocytes # 1.2 10^3/uL (0.8-4.8); Lymphocytes % 12.5 %; Mean Corpuscular Hemoglobin 29.6 pg (27-33); Mean Corpuscular Volume 92.3 fl (82-101); Mean Platelet Volume 10.5 fL (7.4-10.4); Monocytes # 0.9 10^3/uL (0.2-0.9); Monocytes % 10.1 %; Neutrophils # 7.02 10^3/uL (1.8-7.7); Neutrophils % 75.7 %; Nucleated Red Blood Cells % 0 %; Platelet Count 237 10^3/cmm (157-399); Red Blood Count 4.94 10^6/uL (3.85-5.65); White Blood Count 9.28 10^3/uL (3.29-11.43)
[2023-02-24 05:44] LABS: Magnesium 2.2 mg/dL (1.7-2.3)
[2023-02-24] MEDS: levothyroxine 50 mcg Tablet PO (05:48)
[2023-02-24 05:59] LABS: Albumin Level 3.2 g/dL (3.5-5.2); Alkaline Phosphatase 169 U/L (40-130); Blood Urea Nitrogen 44 mg/dL (8-23); Carbon Dioxide 16 mmol/L (22-29); Chloride 97 mmol/L (98-107); Globulin 2.4 g/dL (1.3-4.6); Glucose 115 mg/dL (65-115); Osmolality Calculated 284 mOsm/kg (285-295); Sodium 131 mmol/L (136-145); Total Bilirubin 1.4 mg/dL (0.15-1.2); Total Protein 5.6 g/dL (6.6-8.7)
[2023-02-24 06:04] LABS: Anion Gap 22.9 (5-19); Aspartate Amino Transferase 145 U/L (0-40); Potassium 4.9 mmol/L (3.5-5.1)
[2023-02-24 06:05] LABS: Alanine Aminotransferase 178 U/L (0-41)
[2023-02-24 07:20] LABS: Glucose Point of Care 139 mg/dL (70-110)
[2023-02-24] MEDS: heparin 5,000 unit/mL INJ 1 mL 5000 UNIT SUBCUT ×2 (08:42→21:18)
[2023-02-24] MEDS: metoprolol tartrate 25 mg Tablet 12.5 MG PO ×2 (08:42→21:18)
[2023-02-24] MEDS: finasteride 5 mg Tablet PO (08:42)
[2023-02-24] MEDS: FUROsemide 10 mg/mL SDV 4mL 40 MG IVP ×2 (08:43→17:03)
[2023-02-24] MEDS: atorvastatin 40 mg Tablet 20 MG PO (08:43)
[2023-02-24] MEDS: aspirin 81 mg EC Tablet PO (08:43)
[2023-02-24] MEDS: pantoprazole DR 40 mg Tablet PO (08:43)
--- NOTE | 2023-02-24 10:02 | PM.PN ---
Subjective Subjective: Per report, patient with some confusion overnight. This morning, he states his breathing has improved. Still short of breath with exertion. Labs markable for multiple abnormalities, discussed with patient. He is eager to go home today. I discussed concerns regarding labs and need for increased diuresis. We will repeat labs later today. Son was in the room later this morning. I spoke with him. He reports the patient's mentation is a little off as well. He has concerns over patient discharging as well as he is going to be going home staying with his elderly spouse. He does know that is very difficult for the patient to return the hospital for outpatient appointments as well. Discussed at length with patient and son my recommendation that he stay inpatient for further IV diuresis and further care. He is agreeable. Medications: Reviewed: Yes Vitals/I&O/Wt Last Vital Signs Temp 97.7 F 02/24/23 07:58 Pulse 79 02/24/23 07:58 Resp 18 02/24/23 07:58 BP 116/84 02/24/23 07:58 Pulse Ox 93 02/24/23 07:58 O2 Del Method Room Air 02/24/23 07:58 O2 Flow Rate 2 02/23/23 08:00 02/23/23 02/24/23 02/24/23 22:59 06:59 14:59 Intake Total 290 / 530 50 / 580 360 / 360 Output Total 1800 / 1800 100 / 1900 Balance -1510 / -1270 -50 / -1320 360 / 360 Weight last 48 hrs Weight 95.254 kg Weight 95.254 kg Physical Exam Narrative: General: Patient is awake. Appears fatigued. Head: Normocephalic. Atraumatic. EOM intact. Neck: JVD somewhat difficult to discern Cardiovascular: RRR. No gallops. No murmurs. No peripheral edema. Lungs: Persistent tachypnea with respiratory difficulty and speaking. Breath sounds diminished bilateral bases. Skin: No jaundice. No rashes. Abdomen: Normal bowel sounds, abdomen soft and nontender. Genito Urinary: Genital exam not performed since complaints not related. Rectal: Rectal exam not performed since no symptoms indicated blood loss. Extremities: No cyanosis or clubbing. Musculoskeletal: No erythematous joints. Neurological: Moves all 4 extremities. No myoclonus. Urinary Catheter Management: Laughlin: Cath Placed During This Visit: yes Reason for Continuing Indwelling Catheter: Accurate Measurement of Urinary Output in Critically Ill Patients Urinary Catheter Date of Insertion: 02/20/23 Urinary Catheter Time of Insertion: 18:54 Data 02/24/23 04:44 02/24/23 04:44 Micro: Microbiology 02/20/23 23:59 Urine Culture - Final Urine,Clean Catch A&P Assessment and plan (1) CHF (congestive heart failure): Acute HFrEF Stress test reviewed Patient discussed with cardiology Continue beta diann Continue IV Lasix, dose doubled, monitor response Strict I&O Daily weights Advance goal directed medical therapy Supplemental oxygen as needed, will likely need home O2 eval prior to discharge (2) High anion gap metabolic acidosis: Morning labs significant for metabolic acidosis We will repeat labs later this morning Increasing diuresis Check for occult infection given confusion overnight with procalcitonin, CRP, and urinalysis (3) NSVT (nonsustained ventricular tachycardia): Discussed with cardiology, he will need LifeVest (4) Atrial fibrillation: Per report from PCP office, continue monitoring w/ telemetry for now Continue metoprolol for rate control Will need to decide on anticoagulation if atrial fibrillation rhythm is confirmed (5) 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 (6) HTN (hypertension): Continue metoprolol (7) Diabetes: A1c 7.4 Was on Januvia SSI (8) SPRING (acute kidney injury): Probably not SPRING, suspected CKD Monitor renal function Renally dose medications (9) Abnormal thyroid blood test: TSH elevated on admission with normal free T4 Patient was started on levothyroxine, will continue for now He will need repeat thyroid function testing in about 4 weeks (10) Debility: Treat underlying congestive heart failure Therapy evaluation Plan DVT ppx: Heparin Code: Full Attestations Medical Necessity Statement*: Patient requires ongoing hospitalization for IV diuresis, telemetry, therapy, serial blood work, and supportive care. Coding Level of Care Code Acute Code for Chg Fwd Diagnoses CHF (congestive heart failure) I50.9 High anion gap metabolic acidosis E87.29 NSVT (nonsustained ventricular tachycardia) I47.29 Atrial fibrillation I48.91 Transaminitis R74.01 HTN (hypertension) I10 Diabetes E11.9 SPRING (acute kidney injury) N17.9 Abnormal thyroid blood test R79.89 Debility R53.81
[2023-02-24 10:58] LABS: Albumin Level 3.2 g/dL (3.5-5.2); Anion Gap 19.5 (5-19); Blood Urea Nitrogen 48 mg/dL (8-23); C Reactive Protein 10.7 mg/L (0.0-4.9); Calcium 9.1 mg/dL (8.5-10.5); Carbon Dioxide 22 mmol/L (22-29); Chloride 97 mmol/L (98-107); Glucose 183 mg/dL (65-115); Phosphorus 4.7 mg/dL (2.5-4.5); Potassium 4.5 mmol/L (3.5-5.1); Sodium 134 mmol/L (136-145)
[2023-02-24 11:05] LABS: Procalcitonin 0.29 ng/mL (0-0.5)
[2023-02-24 11:25] LABS: Glucose Point of Care 197 mg/dL (70-110)
[2023-02-24] MEDS: insulin lispro 100 unit/1 mL SUBCUT ×3 (11:57→21:18)
--- NOTE | 2023-02-24 12:08 | PM.PN ---
Subjective Subjective: Patient denies chest pain. Has short of breath. Vitals/I&O/Wt Last Vital Signs Temp 97.7 F 02/24/23 07:58 Pulse 79 02/24/23 07:58 Resp 18 02/24/23 07:58 BP 116/84 02/24/23 07:58 Pulse Ox 93 02/24/23 07:58 O2 Del Method Room Air 02/24/23 07:58 O2 Flow Rate 2 02/23/23 08:00 02/23/23 02/24/23 02/24/23 22:59 06:59 14:59 Intake Total 290 / 530 50 / 580 360 / 360 Output Total 1800 / 1800 100 / 1900 Balance -1510 / -1270 -50 / -1320 360 / 360 Weight last 48 hrs Weight 210 lb Weight 210 lb Physical Exam Narrative: GENERAL: Patient is alert, awake and oriented x3. [] NECK: No jugular vein distension. [] HEENT: No cyanosis. No icterus. No pallor. [] HEART: Regular S1 and S2. No murmur, rub or gallop. [] LUNGS: Diminished air entry, mild crackles bilaterally CENTRAL NERVOUS SYSTEM: Grossly nonfocal. [] EXTREMITIES: Lower extremities with 1-2+ edema bilaterally. Urinary Catheter Management: Laughlin: Cath Placed During This Visit: yes Reason for Continuing Indwelling Catheter: Accurate Measurement of Urinary Output in Critically Ill Patients Urinary Catheter Date of Insertion: 02/20/23 Urinary Catheter Time of Insertion: 18:54 Data 02/24/23 04:44 02/25/23 05:05 Micro: Microbiology 02/20/23 23:59 Urine Culture - Final Urine,Clean Catch A&P Assessment and plan (1) CHF (congestive heart failure): (2) Transaminitis: (3) HTN (hypertension): (4) SPRING (acute kidney injury): (5) Diabetes: Plan Patient is still volume overloaded. Uptitrate diuretic therapy. Close I&O's. Patient will need LifeVest at time of discharge that has been having and nonsustained VT episodes. Thank you for involving us with care of this patient. We will continue to follow. Please will call with questions. Attestations Medical Necessity Statement*: Care expected to cross 2 midnights. Coding Level of Care Code Acute Code for Chg Fwd Diagnoses CHF (congestive heart failure) I50.9 Transaminitis R74.01 HTN (hypertension) I10 SPRING (acute kidney injury) N17.9 Diabetes E11.9
[2023-02-24 16:56] LABS: Glucose Point of Care 369 mg/dL (70-110)
[2023-02-24 17:55] LABS: Add Urine Microscopic? YES; Bilirubin Urine Neg (Negative); Blood Urine 3+ (Negative); Glucose Urine UA Norm (Normal); Ketones Urine Negative (Negative); Leukocyte Esterase Urine Negative (Negative); Nitrate Urine Negative (Negative); Protein Urine Neg (Negative); Urine Appearance Hazy (CLEAR); Urine Color Yellow (Yellow); Urobilinogen Urine Norm (Negative); pH Urine 5 (5-7)
[2023-02-24 18:04] LABS: Bacteria Urine TRACE /hpf; Mucus Urine 1+ /hpf; RBC Urine 40-50 /hpf (0-2); Squamous Epithelial Cell Urine 0-4 /hpf (0-5)
[2023-02-24 18:05] LABS: Add Urine Culture? Yes
[2023-02-24 20:54] LABS: Glucose Point of Care 189 mg/dL (70-110)
[2023-02-25] VITALS (52 sets, daily range): BP systolic 98–133; BP diastolic 59–84; PULSE 72–94; RESP 0–40; TEMP 36.4–36.8; O2SAT 81–99; BMI 26.4
--- NOTE | 2023-02-25 05:46 | PC.NURSE ---
Patient was found multiple times throughout the night sleeping with his nasal cannula on his forehead. Nurse helped reposition nasal cannula.
[2023-02-25 06:14] LABS: Alanine Aminotransferase 181 U/L (0-41); Albumin Level 3.3 g/dL (3.5-5.2); Alkaline Phosphatase 188 U/L (40-130); Anion Gap 14.9 (5-19); Aspartate Amino Transferase 106 U/L (0-40); Blood Urea Nitrogen 54 mg/dL (8-23); Carbon Dioxide 25 mmol/L (22-29); Chloride 101 mmol/L (98-107); Globulin 2.4 g/dL (1.3-4.6); Glucose 125 mg/dL (65-115); Magnesium 2.2 mg/dL (1.7-2.3); Osmolality Calculated 300 mOsm/kg (285-295); Potassium 3.9 mmol/L (3.5-5.1); Sodium 137 mmol/L (136-145); Total Bilirubin 0.8 mg/dL (0.15-1.2); Total Protein 5.7 g/dL (6.6-8.7)
[2023-02-25] MEDS: FUROsemide 10 mg/mL SDV 4mL 40 MG IVP ×2 (06:15→17:53)
[2023-02-25] MEDS: levothyroxine 25 mcg Tablet PO (06:15)
[2023-02-25 06:22] LABS: Glucose Point of Care 124 mg/dL (70-110)
--- NOTE | 2023-02-25 07:05 | XR_ITS ---
WS: [id number] Portable AP upright chest, 02/25/2023 Clinical Data: Evaluate pleural effusion, considering tap Comparison: Portable chest, 02/20/2023 Findings: No nodules, masses or effusions are seen. There is patchy opacity of the right lung base wh ich could represent pneumonia and/or atelectasis. The heart is enlarged. The pulmonary vascularity is not increased. No pneumonia or pneumothorax is seen. The aortic arch shows calcification. Monitor le ads are on the chest wall. There is degenerative change of both shoulders. Impression: 1. No change in right lung base patchy opacity. 2. Cardiomegaly and atherosclerosis.
--- NOTE | 2023-02-25 07:54 | P.PN_ITS ---
Subjective Subjective: Patient has improved urine output but still requires further diuresis. Creatinine and BUN worsened. Vitals/I&O/Wt Last Vital Signs Temp 97.5 F L 02/25/23 07:47 Pulse 76 02/25/23 07:47 Resp 16 02/25/23 07:47 BP 133/70 02/25/23 07:47 Pulse Ox 94 02/25/23 07:47 O2 Del Method Nasal Cannula 02/25/23 07:47 O2 Flow Rate 3 02/25/23 02:15 02/24/23 02/25/23 02/25/23 22:59 06:59 14:59 Intake Total 0 / 840 100 / 940 Output Total 1200 / 1200 400 / 1600 Balance -1200 / -360 -300 / -660 Weight last 48 hrs Weight 206 lb Weight 210 lb Weight 210 lb Physical Exam Narrative: GENERAL: Patient is alert, awake and oriented x3. [] NECK: No jugular vein distension. [] HEENT: No cyanosis. No icterus. No pallor. [] HEART: Regular S1 and S2. No murmur, rub or gallop. [] LUNGS: Diminished air entry, mild crackles bilaterally CENTRAL NERVOUS SYSTEM: Grossly nonfocal. [] EXTREMITIES: Lower extremities with 1-2+ edema bilaterally. Urinary Catheter Management: Laughlin: Cath Placed During This Visit: yes Reason for Continuing Indwelling Catheter: Accurate Measurement of Urinary Output in Critically Ill Patients Urinary Catheter Date of Insertion: 02/20/23 Urinary Catheter Time of Insertion: 18:54 Data 02/26/23 03:50 02/26/23 03:50 A&P Assessment and plan (1) CHF (congestive heart failure): (2) Transaminitis: (3) HTN (hypertension): (4) SPRING (acute kidney injury): (5) Diabetes: Plan We will add dobutamine. Continue IV diuretics. Close I&O's. LifeVest ordered. Thank you for involving us with care of this patient. We will continue to follow. Please will call with questions. Attestations Medical Necessity Statement*: Care expected to cross 2 midnights. Coding Level of Care Code Acute Code for [facility] Fwd Diagnoses CHF (congestive heart failure) I50.9 Transaminitis R74.01 HTN (hypertension) I10 SPRING (acute kidney injury) N17.9 Diabetes E11.9
--- NOTE | 2023-02-25 08:47 | US_ITS ---
WS: [id number] INDICATION: Thoracentesis TECHNIQUE: Ultrasound chest FINDINGS: Ultrasound chest pre thoracentesis. Only minimal RIGHT pleural fluid. Insufficient fluid to safely perform thoracentesis. Only trace LEFT pleural fluid. IMPRESSION: See above
[2023-02-25] MEDS: atorvastatin 40 mg Tablet 20 MG PO (09:24)
[2023-02-25] MEDS: aspirin 81 mg EC Tablet PO (09:24)
[2023-02-25] MEDS: metoprolol tartrate 25 mg Tablet 12.5 MG PO ×2 (09:26→22:03)
[2023-02-25] MEDS: finasteride 5 mg Tablet PO (09:28)
[2023-02-25] MEDS: heparin 5,000 unit/mL INJ 1 mL 5000 UNIT SUBCUT ×2 (09:28→22:02)
[2023-02-25] MEDS: pantoprazole DR 40 mg Tablet PO (09:28)
[2023-02-25 09:47] LABS: Lactate Dehydrogenase 241 U/L (135-225)
--- NOTE | 2023-02-25 11:32 | PM.PN ---
Subjective Subjective: Patient endorses ongoing shortness of breath. Denies nausea, vomiting, fevers, or chills. Medications: Reviewed: Yes Vitals/I&O/Wt Last Vital Signs Temp 97.5 F L 02/25/23 07:47 Pulse 85 02/25/23 08:00 Resp 16 02/25/23 07:47 BP 133/70 02/25/23 07:47 Pulse Ox 98 02/25/23 08:00 O2 Del Method Nasal Cannula 02/25/23 08:00 O2 Flow Rate 3 02/25/23 08:00 02/24/23 02/25/23 02/25/23 22:59 06:59 14:59 Intake Total 0 / 840 100 / 940 Output Total 1200 / 1200 400 / 1600 700 / 700 Balance -1200 / -360 -300 / -660 -700 / -700 Weight last 48 hrs Weight 93.44 kg Weight 95.254 kg Physical Exam Narrative: General: Patient is awake. Head: Normocephalic. Atraumatic. EOM intact. Neck: JVD somewhat difficult to discern Cardiovascular: RRR. No gallops. No murmurs. No peripheral edema. Lungs: Tachypnea with respiratory difficulty when speaking similar to prior exam. Breath sounds diminished bilateral bases. Skin: No jaundice. No rashes. Abdomen: Normal bowel sounds, abdomen soft and nontender. Extremities: No cyanosis or clubbing. Musculoskeletal: No erythematous joints. Neurological: Moves all 4 extremities. No myoclonus. Urinary Catheter Management: Laughlin: Cath Placed During This Visit: yes Reason for Continuing Indwelling Catheter: Accurate Measurement of Urinary Output in Critically Ill Patients Urinary Catheter Date of Insertion: 02/20/23 Urinary Catheter Time of Insertion: 18:54 Data 02/24/23 04:44 02/25/23 05:05 A&P Assessment and plan (1) CHF (congestive heart failure): Acute HFrEF Continue beta diann Continue IV Lasix BUN and Cr uptrending Patient not responding to treatment as quickly as intended, will proceed with inotropic support Start dobutamine drip, fixed rate on CSU Strict I&O Daily weights Advance goal directed medical therapy (2) NSVT (nonsustained ventricular tachycardia): At risk of ventricular arrhythmia with low ejection fraction LifeVest ordered by cardiology Telemetry monitoring Monitor electrolytes (3) Atrial fibrillation: Per report from PCP office, continue monitoring w/ telemetry for now Continue metoprolol for rate control Will need to decide on anticoagulation if atrial fibrillation rhythm is confirmed (4) 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 (5) HTN (hypertension): Continue metoprolol (6) Diabetes: A1c 7.4 Was on Januvia SSI (7) SPRING (acute kidney injury): Renal function worsening, discussed with cardiology (8) Abnormal thyroid blood test: TSH elevated on admission with normal free T4 Patient was started on levothyroxine, will continue for now He will need repeat thyroid function testing in about 4 weeks (9) Debility: Treat underlying congestive heart failure Therapy evaluation (10) High anion gap metabolic acidosis: Resolved Plan DVT ppx: Heparin Code: Full Attestations Medical Necessity Statement*: Patient requires ongoing hospitalization for IV diuresis, dobutamine, telemetry, therapy, serial blood work, and supportive care. Coding Level of Care Code Acute Code for Chg Fwd Diagnoses CHF (congestive heart failure) I50.9 NSVT (nonsustained ventricular tachycardia) I47.29 Atrial fibrillation I48.91 Transaminitis R74.01 HTN (hypertension) I10 Diabetes E11.9 SPRING (acute kidney injury) N17.9 Abnormal thyroid blood test R79.89 Debility R53.81 High anion gap metabolic acidosis E87.29
[2023-02-25] MEDS: DOBUTamine drip 500 MG/250 ML PREMIX 14.02 MG IV (11:54)
[2023-02-25 11:58] LABS: Glucose Point of Care 242 mg/dL (70-110)
[2023-02-25] MEDS: insulin lispro 100 unit/1 mL SUBCUT ×3 (12:05→22:02)
[2023-02-25 16:19] LABS: Glucose Point of Care 337 mg/dL (70-110)
[2023-02-25 21:53] LABS: Glucose Point of Care 170 mg/dL (70-110)
[2023-02-26] VITALS (34 sets, daily range): BP systolic 93–124; BP diastolic 53–90; PULSE 71–110; RESP 15–43; TEMP 36.4–36.7; O2SAT 87–97
[2023-02-26 04:04] LABS: Basophils % 0.3 %; Eosinophils # 0.3 10^3/uL (0.0-0.8); Eosinophils % 5.4 %; Hematocrit 39.2 % (37-53); Lymphocytes # 1.3 10^3/uL (0.8-4.8); Lymphocytes % 21.5 %; Mean Corpuscular HGB Conc 32.1 g/dL (30-55); Mean Corpuscular Hemoglobin 29.2 pg (27-33); Mean Corpuscular Volume 90.7 fl (82-101); Mean Platelet Volume 10.2 fL (7.4-10.4); Monocytes # 0.6 10^3/uL (0.2-0.9); Monocytes % 10.2 %; Neutrophils # 3.67 10^3/uL (1.8-7.7); Neutrophils % 62.3 %; Nucleated Red Blood Cells % 0 %; Platelet Count 160 10^3/cmm (157-399); Red Blood Count 4.32 10^6/uL (3.85-5.65); Red Cell Distribution Width 13.7 % (12.1-15.1)
[2023-02-26] MEDS: DOBUTamine drip 500 MG/250 ML PREMIX 14.02 MG IV (04:25)
[2023-02-26 04:33] LABS: Alanine Aminotransferase 128 U/L (0-41); Alkaline Phosphatase 143 U/L (40-130); Anion Gap 14.3 (5-19); Aspartate Amino Transferase 53 U/L (0-40); Blood Urea Nitrogen 42 mg/dL (8-23); Calcium 8.5 mg/dL (8.5-10.5); Carbon Dioxide 27 mmol/L (22-29); Chloride 101 mmol/L (98-107); Globulin 2.1 g/dL (1.3-4.6); Glucose 108 mg/dL (65-115); Magnesium 1.8 mg/dL (1.7-2.3); Osmolality Calculated 299 mOsm/kg (285-295); Phosphorus 3.4 mg/dL (2.5-4.5); Potassium 3.3 mmol/L (3.5-5.1); Sodium 139 mmol/L (136-145); Total Bilirubin 0.9 mg/dL (0.15-1.2); Total Protein 5.1 g/dL (6.6-8.7)
[2023-02-26] MEDS: levothyroxine 25 mcg Tablet PO (06:04)
[2023-02-26] MEDS: FUROsemide 10 mg/mL SDV 4mL 40 MG IVP ×2 (06:04→17:35)
[2023-02-26 07:06] LABS: Glucose Point of Care 192 mg/dL (70-110)
--- NOTE | 2023-02-26 07:39 | P.PN_ITS ---
Subjective Subjective: Patient is overall doing well. Shortness of breath is improving significantly with aggressive diuresis with dobutamine. Renal function improving. Vitals/I&O/Wt Last Vital Signs Temp 98.0 F 02/26/23 00:00 Pulse 87 02/26/23 05:08 Resp 36 H 02/26/23 04:00 BP 122/54 02/26/23 04:00 Pulse Ox 94 02/26/23 04:00 O2 Del Method Nasal Cannula 02/26/23 00:00 O2 Flow Rate 3 02/25/23 20:00 02/25/23 02/26/23 02/26/23 22:59 06:59 14:59 Intake Total 240 / 480 351.564 / 831.564 Output Total 1360 / 2920 400 / 3320 Balance -1120 / -2440 -48.436 / -2488.436 Weight last 48 hrs Weight 206 lb Weight 206 lb Weight 210 lb Physical Exam Narrative: GENERAL: Patient is alert, awake and oriented x3. [] NECK: No jugular vein distension. [] HEENT: No cyanosis. No icterus. No pallor. [] HEART: Regular S1 and S2. No murmur, rub or gallop. [] LUNGS: Diminished air entry CENTRAL NERVOUS SYSTEM: Grossly nonfocal. [] EXTREMITIES: Lower extremities with 1+ edema bilaterally. Urinary Catheter Management: Laughlin: Cath Placed During This Visit: yes Reason for Continuing Indwelling Catheter: Acute Urinary Retention or Obst ruction Urinary Catheter Date of Insertion: 02/20/23 Urinary Catheter Time of Insertion: 18:54 Data 02/26/23 03:50 02/26/23 03:50 A&P Assessment and plan (1) CHF (congestive heart failure): (2) Transaminitis: (3) HTN (hypertension): (4) SPRING (acute kidney injury): (5) Diabetes: Plan With dobutamine, diuresis has significantly improved. Renal function improving. We will continue with aggressive diuresis. Close I&O's. He has the lifevest. Thank you for involving us with care of this patient. We will continue to follow. Likely discharge in 1-2 days. Please will call with questions. Attestations Medical Necessity Statement*: Care expected to cross 2 midnights. Coding Level of Care Code Acute Code for Chg Fwd Diagnoses CHF (congestive heart failure) I50.9 Transaminitis R74.01 HTN (hypertension) I10 SPRING (acute kidney injury) N17.9 Diabetes E11.9
[2023-02-26] MEDS: insulin lispro 100 unit/1 mL SUBCUT ×4 (08:32→21:03)
[2023-02-26] MEDS: finasteride 5 mg Tablet PO (08:32)
[2023-02-26] MEDS: heparin 5,000 unit/mL INJ 1 mL 5000 UNIT SUBCUT ×2 (08:33→21:03)
[2023-02-26] MEDS: atorvastatin 40 mg Tablet 20 MG PO (08:33)
[2023-02-26] MEDS: pantoprazole DR 40 mg Tablet PO (08:33)
[2023-02-26] MEDS: metoprolol tartrate 25 mg Tablet 12.5 MG PO ×2 (08:33→21:03)
[2023-02-26] MEDS: aspirin 81 mg EC Tablet PO (08:33)
[2023-02-26 11:29] LABS: Glucose Point of Care 185 mg/dL (70-110)
--- NOTE | 2023-02-26 14:32 | PM.PN ---
Subjective Subjective: Patient reports continued shortness of breath. Has been in bed most of yesterday. Denies fevers or chills. Reports appetite is ok. Discussed positive response to dobutamine. Medications: Reviewed: Yes Vitals/I&O/Wt Last Vital Signs Temp 98.0 F 02/26/23 00:00 Pulse 83 02/26/23 13:00 Resp 15 02/26/23 13:00 BP 115/69 02/26/23 13:00 Pulse Ox 90 02/26/23 13:00 O2 Del Method Room Air 02/26/23 08:45 O2 Flow Rate 3 02/25/23 20:00 02/25/23 02/26/23 02/26/23 22:59 06:59 14:59 Intake Total 240 / 480 351.564 / 831.564 360 / 360 Output Total 1360 / 2920 400 / 3320 1999 Balance -1120 / -2440 -48.436 / -2488.436 -1640 / -1640 Weight last 48 hrs Weight 94.801 kg Weight 93.44 kg Weight 93.44 kg Physical Exam Narrative: General: Patient is awake. Alert. Pleasant. Head: Normocephalic. Atraumatic. EOM intact. Neck: JVD somewhat difficult to discern Cardiovascular: RRR. No gallops. No murmurs. No peripheral edema. Lungs: Breath sounds are slightly diminished. Increased work of breathing when speaking. Skin: No jaundice. No rashes. Abdomen: Normal bowel sounds, abdomen soft and nontender. Extremities: No cyanosis or clubbing. Musculoskeletal: No erythematous joints. Neurological: Moves all 4 extremities. No myoclonus. Urinary Catheter Management: Laughlin: Cath Placed During This Visit: yes Reason for Continuing Indwelling Catheter: Acute Urinary Retention or Obstruction Urinary Catheter Date of Insertion: 02/20/23 Urinary Catheter Time of Insertion: 18:54 Data 02/26/23 03:50 02/26/23 03:50 Micro: Microbiology 02/24/23 16:25 Urine Culture - Preliminary Urine,Clean Catch A&P Assessment and plan (1) CHF (congestive heart failure): Acute HFrEF, newly diagnosed Continue beta diann Continue IV Lasix Continue dobutamine Strict I&O Daily weights Advance goal directed medical therapy (2) NSVT (nonsustained ventricular tachycardia): Lifevest through cardilogy Monitor electrolytes (3) Atrial fibrillation: Per report from PCP office, continue monitoring w/ telemetry for now Continue metoprolol for rate control Will need to decide on anticoagulation if atrial fibrillation rhythm is confirmed (4) 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 (5) HTN (hypertension): Continue metoprolol (6) Diabetes: A1c 7.4 Was on Januvia SSI (7) SPRING (acute kidney injury): Baseline unknown, renal insufficiency, could be SPRING, SPRING/CKD, or CKD Renally dose medications (8) Abnormal thyroid blood test: TSH elevated on admission with normal free T4 Patient was started on levothyroxine, will continue for now He will need repeat thyroid function testing in about 4 weeks (9) Debility: Treat underlying congestive heart failure Therapy evaluation Plan DVT ppx: Heparin Code: Full Attestations Medical Necessity Statement*: Patient requires ongoing hospitalization for IV diuresis, dobutamine, telemetry, therapy, serial blood work, and supportive care Coding Level of Care Code Acute Code for Chg Fwd Diagnoses CHF (congestive heart failure) I50.9 NSVT (nonsustained ventricular tachycardia) I47.29 Atrial fibrillation I48.91 Transaminitis R74.01 HTN (hypertension) I10 Diabetes E11.9 SPRING (acute kidney injury) N17.9 Abnormal thyroid blood test R79.89 Debility R53.81
[2023-02-26 16:55] LABS: Glucose Point of Care 224 mg/dL (70-110)
[2023-02-26] MEDS: potassium chloride ER 20 mEq Tablet 40 MEQ PO (17:35)
[2023-02-26 21:14] LABS: Glucose Point of Care 178 mg/dL (70-110)
[2023-02-27] VITALS (7 sets, daily range): BP systolic 98–138; BP diastolic 61–101; PULSE 82–94; RESP 24–28; TEMP 36.4–36.7; O2SAT 90–96
[2023-02-27] MEDS: DOBUTamine drip 500 MG/250 ML PREMIX 14.02 MG IV (00:38)
[2023-02-27 05:26] LABS: Alanine Aminotransferase 110 U/L (0-41); Albumin Level 3.1 g/dL (3.5-5.2); Alkaline Phosphatase 140 U/L (40-130); Anion Gap 13.9 (5-19); Aspartate Amino Transferase 38 U/L (0-40); Blood Urea Nitrogen 35 mg/dL (8-23); Calcium 8.7 mg/dL (8.5-10.5); Carbon Dioxide 30 mmol/L (22-29); Chloride 99 mmol/L (98-107); Globulin 2.3 g/dL (1.3-4.6); Glucose 123 mg/dL (65-115); Magnesium 1.8 mg/dL (1.7-2.3); Osmolality Calculated 297 mOsm/kg (285-295); Potassium 3.9 mmol/L (3.5-5.1); Sodium 139 mmol/L (136-145); Total Bilirubin 0.9 mg/dL (0.15-1.2); Total Protein 5.4 g/dL (6.6-8.7)
[2023-02-27] MEDS: FUROsemide 10 mg/mL SDV 4mL 40 MG IVP (06:24)
[2023-02-27] MEDS: levothyroxine 25 mcg Tablet PO (06:24)
[2023-02-27 06:31] LABS: Glucose Point of Care 128 mg/dL (70-110)
[2023-02-27] MEDS: heparin 5,000 unit/mL INJ 1 mL 5000 UNIT SUBCUT (08:37)
[2023-02-27] MEDS: aspirin 81 mg EC Tablet PO (08:37)
[2023-02-27] MEDS: metoprolol tartrate 25 mg Tablet 12.5 MG PO (08:37)
[2023-02-27] MEDS: pantoprazole DR 40 mg Tablet PO (08:37)
[2023-02-27] MEDS: finasteride 5 mg Tablet PO (08:37)
[2023-02-27] MEDS: atorvastatin 40 mg Tablet 20 MG PO (08:37)
--- NOTE | 2023-02-27 10:23 | PM.PN ---
Subjective Subjective: Patient is doing well alert awake without any acute distress no chest pain shortness of breath improved significantly. No significant leg edema. Medications: Reviewed: Yes Vitals/I&O/Wt Last Vital Signs Temp 97.5 F L 02/27/23 08:00 Pulse 82 02/27/23 08:00 Resp 25 H 02/27/23 08:00 BP 121/83 02/27/23 08:00 Pulse Ox 90 02/27/23 08:00 O2 Del Method Room Air 02/27/23 08:00 O2 Flow Rate 3 02/25/23 20:00 02/26/23 02/27/23 02/27/23 22:59 06:59 14:59 Intake Total 450 / 810 1000 / 1810 240 / 240 Output Total 350 / 2350 1800 / 4150 Balance 100 / -1540 -800 / -2340 240 / 240 Weight last 48 hrs Weight 202 lb 3.2 oz Weight 209 lb Weight 206 lb Physical Exam Narrative: GENERAL: Patient is alert, awake and oriented x3. [] NECK: No jugular vein distension. [] HEENT: No cyanosis. No icterus. No pallor. [] HEART: Regular S1 and S2. No murmur, rub or gallop. [] LUNGS: Diminished air entry CENTRAL NERVOUS SYSTEM: Grossly nonfocal. [] EXTREMITIES: Lower extremities with 1+ edema bilaterally. Urinary Catheter Management: Laughlin: Cath Placed During This Visit: yes Reason for Continuing Indwelling Catheter: Accurate Measurement of Urinary Output in Critically Ill Patients Urinary Catheter Date of Insertion: 02/20/23 Urinary Catheter Time of Insertion: 18:54 Data 02/26/23 03:50 02/27/23 04:15 Micro: Microbiology 02/24/23 16:25 Urine Culture - Preliminary Urine,Clean Catch A&P Assessment and plan (1) CHF (congestive heart failure): With significant improvement in symptoms. Will start weaning off his dobutamine drip today, continue IV diuresis. Continue beta-blockers. Will ambulate if he does okay he may be able to discharge home tomorrow. Currently patient on LifeVest. (2) Transaminitis: Stable likely secondary to his congestive heart failure. (3) HTN (hypertension): Adequately controlled (4) SPRING (acute kidney injury): Stable creatinine 1.5. Potassium improved 3.9. Continue to monitor his renal function (5) Diabetes: Managed by hospitalist Plan See above Attestations Medical Necessity Statement*: Patient still on IV diuretics and dobutamine drip. Will wean off start ambulation Coding Level of Care Code Acute Code for Chg Fwd Diagnoses CHF (congestive heart failure) I50.9 Transaminitis R74.01 HTN (hypertension) I10 SPRING (acute kidney injury) N17.9 Diabetes E11.9
[2023-02-27 11:16] LABS: Glucose Point of Care 276 mg/dL (70-110)
[2023-02-27] MEDS: insulin lispro 100 unit/1 mL SUBCUT (12:08)
--- NOTE | 2023-02-27 12:26 | PM.DCS ---
Discharge Providers Date of Admission: 02/21/23 15:07 Date of Discharge: February 27, 2023 Attending Provider at Admission: Dharmesh Dugan MD Attending Provider at Discharge: Connor Siddiqui MD Consults: Cardiology Diagnoses at Discharge Discharge Diagnosis (1) CHF (congestive heart failure): Status: Acute (2) Transaminitis: Status: Acute (3) HTN (hypertension): Status: Acute (4) SPRING (acute kidney injury): Status: Acute (5) Diabetes: Status: Acute Reason for Visit Reason for Visit: sob Hospital Course Hospital Course Jake Ward is a 87-year-old male with a past medical history significant for hypertension who presented from his primary care office with reports of tachycardia concerning for atrial fibrillation. Patient found to have newly diagnosed cardiomyopathy with acute heart failure with reduced ejection fraction exacerbation. Cardiology consulted and followed. He was treated initially with IV diuresis but failed to adequately respond. He eventually required dobutamine drip for inotropic support. Volume status improved. He was rotated to high intensity statin for suspected coronary disease. He was started on goal directed medical therapy for congestive heart failure. ACEI was washed out and patient started on Entresto at discharge. Betablocker was initiated. Patient was found to have non-sustained ventricular tachycardia. He was fitted and provided LifeVest. The reported rhythm of atrial fibrillation from PCP office could not be confirmed as no EKG or rhythm strip could be located. He is to follow up with his PCP for further treatment where anticoagulation can be considered if atrial fibrillation is indeed confirmed. He was found to have renal insufficiency with a likely component of acute kidney injury on chronic kidney disease although baseline renal function could not be confirmed. Renal function showed evidence of improvement with diuresis. Patient discharged to home in stable condition. He is to follow up with primary care physician and cardiology clinic for further care. Physical Exam Narrative: General: Patient is awake. ? Alert.? Head:? Normocephalic. Atraumatic. EOM intact. Neck: JVD somewhat difficult to discern Cardiovascular: RRR. No gallops. No murmurs. No peripheral edema. Lungs: Breath sounds are slightly diminished.? No respiratory distress. Skin: No jaundice. No rashes. Abdomen: Normal bowel sounds, abdomen soft and nontender. Extremities: No cyanosis or clubbing. Musculoskeletal: No erythematous joints. Neurological: Moves all 4 extremities. No myoclonus. Urinary Catheter Management: Laughlin: Cath Placed During This Visit: yes Reason for Continuing Indwelling Catheter: Accurate Measurement of Urinary Output in Critically Ill Patients Urinary Catheter Date of Insertion: 02/20/23 Urinary Catheter Time of Insertion: 18:54 Discharge Data Studies Completed and Pending Completed Studies During Hospitalization Category Date Time Status CT PE [CT angio chest PE protcl [id number]] Stat Cat Scan 02/20/23 18:44 Completed Sestamibi Stress Test Request Routine Exams 02/21/23 15:12 Draft XR chest 1V portable [id number] Routine Exams 02/25/23 07:05 Completed XR chest 1V portable [id number] Stat Exams 02/20/23 16:39 Completed NM adi perf SPECT r/s* [id number] Routine Nuc Med 02/23/23 15:13 Completed CV. echo complete* [id number] Routine Ultrasound 02/21/23 06:00 [place] chest [id number] Routine Ultrasound 02/25/23 08:47 [place]pleted [place] liver [id number] Routine Ultrasound 02/21/23 01:02 Completed Radiology Impressions Chest CTA 02/20/23 18:44 IMPRESSION: 1. Negative for pulmonary embolus. 2. Large right and small left pleural effusions. 3. Cardiomegaly. 4. Coronary artery atherosclerotic calcifications. 5. Reflux of contrast into the intrahepatic veins suggestive of congestive heart failure. 6. Cholelithiasis. 7. Moderate ascites in the upper abdomen somewhat visualized. 8. Ascending thoracic aorta dilated to 4.4 cm. 9. Bilateral dependent atelectasis versus infiltrate. Next emphysematous changes. 10. Multilevel bridging degenerative calcifications throughout the spine. 11. Scattered subcentimeter short axis prominent mediastinal lymph nodes, nonspecific. Liver Ultrasound 02/21/23 01:02 IMPRESSION: 1. Hepatomegaly. 2. Mild perihepatic ascites. 3. Couple benign-appearing right renal cysts. Laboratory Results WBC 5.90 10^3/uL (3.29-11.43) 02/26/23 03:50 RBC 4.32 10^6/uL (3.85-5.65) 02/26/23 03:50 Hgb 12.60 g/dL (11.27-16.99) 02/26/23 03:50 Hct 39.2 % (37-53) 02/26/23 03:50 MCV 90.7 fl (82-101) 02/26/23 03:50 MCH 29.2 pg (27-33) 02/26/23 03:50 MCHC 32.1 g/dL (30-55) 02/26/23 03:50 RDW 13.7 % (12.1-15.1) 02/26/23 03:50 Plt Count 160 10^3/cmm (157-399) 02/26/23 03:50 MPV 10.2 fL (7.4-10.4) 02/26/23 03:50 Neut % (Auto) 62.3 % 02/26/23 03:50 Lymph % (Auto) 21.5 % 02/26/23 03:50 Cow[place] % (Auto) 10.2 % 02/26/23 03:50 Eos % (Auto) 5.4 % 02/26/23 03:50 Baso % (Auto) 0.3 % 02/26/23 03:50 Neut # (Auto) 3.67 10^3/uL (1.8-7.7) 02/26/23 03:50 Lymph # (Auto) 1.3 10^3/uL (0.8-4.8) 02/26/23 03:50 Cowley # (Auto) 0.6 10^3/uL (0.2-0.9) 02/26/23 03:50 Eos # (Auto) 0.3 10^3/uL (0.0-0.8) 02/26/23 03:50 Baso # (Auto) 0.0 10^3/uL (0.0-0.1) 02/26/23 03:50 Nucleated RBC % (auto) 0 % 02/26/23 03:50 Nucleated RBCs # 0.0 /100WBC 02/26/23 03:50 PT 16.00 SECONDS (12.1-14.9) H 02/20/23 17:13 INR 1.24 (0.8-1.2) H 02/20/23 17:13 APTT 35.0 SECONDS (23.9-36.7) 02/20/23 17:13 D-Dimer 2.10 ug/mLFEU (0-0.59) H 02/20/23 17:13 Sodium 139 mmol/L (136-145) 02/27/23 04:15 Potassium 3.9 mmol/L (3.5-5.1) 02/27/23 04:15 Chloride 99 mmol/L (98-107) 02/27/23 04:15 Carbon Dioxide 30 mmol/L (22-29) H 02/27/23 04:15 Anion Gap 13.9 (5-19) 02/27/23 04:15 BUN 35 mg/dL (8-23) H 02/27/23 04:15 Creatinine 1.5 mg/dL (0.7-1.2) H 02/27/23 04:15 GFR Calculation Not Reportable 02/27/23 04:15 Glucose 123 mg/dL (65-115) H 02/27/23 04:15 POC Glucose 276 mg/dL (70-110) H 02/27/23 11:05 Estimat Average Glucose 166 02/21/23 05:02 Hemoglobin A1c 7.4 % (4.0-6.0) H 02/21/23 05:02 Calculated Osmolality 297 mOsm/kg (285-295) H 02/27/23 04:15 Calcium 8.7 mg/dL (8.5-10.5) 02/27/23 04:15 Phosphorus 3.0 mg/dL (2.5-4.5) 02/27/23 04:15 Magnesium 1.8 mg/dL (1.7-2.3) 02/27/23 04:15 Iron 28 ug/dL (59-158) L 02/20/23 19:13 TIBC 271 mcg/dl 02/20/23 19:13 % Saturation 10.3 % (20-50) L 02/20/23 19:13 Unsat Iron Binding 243 ug/dL (112-347) 02/20/23 19:13 Total Bilirubin 0.9 mg/dL (0.15-1.2) 02/27/23 04:15 AST 38 U/L (0-40) 02/27/23 04:15 ALT 110 U/L (0-41) H 02/27/23 04:15 Alkaline Phosphatase 140 U/L (40-130) H 02/27/23 04:15 Lactate Dehydrogenase 241 U/L (135-225) H 02/25/23 05:05 Troponin T Baseline 73 ng/L (0-15) H 02/20/23 17:13 Troponin T 120 Minute 67.87 ng/L (0-15) H 02/20/23 19:13 Delta Troponin T -5.13 ABS# (0-10) L 02/20/23 19:13 Troponin T Hi Sens 6Hr 82.99 ng/L (0-15) H 02/20/23 23:20 Troponin T Hi Sens 6Hr Delta 9.99 ng/L (0-12) 02/20/23 23:20 C-Reactive Protein 10.7 mg/L (0.0-4.9) H 02/24/23 10:28 NT-Pro-B Natriuret Pep 9307 pg/mL (0-450) H 02/20/23 17:13 Total Protein 5.4 g/dL (6.6-8.7) L 02/27/23 04:15 Albumin 3.1 g/dL (3.5-5.2) L 02/27/23 04:15 Globulin 2.3 g/dL (1.3-4.6) 02/27/23 04:15 Triglycerides 66 mg/dL (0-150) 02/21/23 05:02 Cholesterol 117 mg/dL (0-200) 02/21/23 05:02 LDL Cholesterol, Calc 68 mg/dL (50-129) 02/21/23 05:02 HDL Cholesterol 36 mg/dL (60-100) L 02/21/23 05:02 LDL/HDL Ratio 1.89 RATIO (0.00-3.22) 02/21/23 05:02 Cholesterol/HDL Ratio 3.25 mg/dL (1.0-5.00) 02/21/23 05:02 Vitamin B12 1584 pg/mL (232-1245) H 02/20/23 19:13 Folate > 20.0 ng/mL (4.5-32.2) 02/21/23 05:02 Procalcitonin 0.29 ng/mL (0-0.5) 02/24/23 10:28 TSH 18.96 uIU/mL (0.27-4.20) H 02/20/23 19:13 Free T4 1.05 ng/dL (0.82-1.77) 02/21/23 05:02 Free T3 1.6 PG/ML (2.0-4.4) L 02/21/23 05:02 Urine Color Yellow (Yellow) 02/24/23 16:25 Urine Appearance Hazy (CLEAR) A 02/24/23 16:25 Urine pH 5 (5-7) 02/24/23 16:25 Ur Specific [place] 1.020 (1.005-1.030) 02/24/23 16:25 Urine Protein Neg (Negative) 02/24/23 16:25 Urine Glucose (UA) Norm (Normal) 02/24/23 16:25 Urine Ketones Negative (Negative) 02/24/23 16:25 Urine Blood 3+ (Negative) H 02/24/23 16:25 Urine Nitrate Negative (Negative) 02/24/23 16:25 Urine Bilirubin Neg (Negative) 02/24/23 16:25 Urine Urobilinogen Norm mg/dL (Negative) 02/24/23 16:25 Ur Leukocyte Esterase Negative (Negative) 02/24/23 16:25 Urine RBC 40-50 /hpf (0-2) H 02/24/23 16:25 Urine WBC 5-10 /hpf (0-5) H 02/24/23 16:25 Ur Eosinophil Smear 2 (0-0) H 02/21/23 00:00 Ur Squamous Epith Cells 0-4 /hpf (0-5) H 02/24/23 16:25 Amorphous Sediment Not Reportable 02/24/23 16:25 Urine Bacteria Trace /hpf (NONE) 02/24/23 16:25 Hyaline Casts 5-10 /lpf H 02/24/23 16:25 Urine Mucus 1+ /hpf 02/24/23 16:25 Urine Eosinophils Eosinophils seen H 02/21/23 00:00 Ur Random Sodium 108 mmol/L 02/21/23 00:00 Ur Random Potassium 19 mmol/L 02/21/23 00:00 Ur Random Chloride 122 mmol/L 02/21/23 00:00 Urine Creatinine 14 mg/dL (39-259) L 02/21/23 00:00 Urine Opiates Screen Negative ng/mL (Negative) 02/21/23 00:00 Ur Barbiturates Screen Negative ng/mL (Negative) 02/21/23 00:00 Ur Phencyclidine Scrn Negative ng/mL (Negative) 02/21/23 00:00 Ur Amphetamines Screen Negative ng/mL (Negative) 02/21/23 00:00 U Benzodiazepines Scrn Negative ng/mL (Negative) 02/21/23 00:00 Urine Cocaine Screen Negative ng/mL (Negative) 02/21/23 00:00 U Marijuana (THC) Screen Negative ng/mL (Negative) 02/21/23 00:00 Ethyl Alcohol < 10 mg/dL (0-10) 02/20/23 17:13 Hepatitis A IgM Ab Non-reactive (Nonreactive) 02/22/23 03:29 Hep Bs Antigen Non-reactive (Nonreactive) 02/22/23 03:29 Hep Bs Antibody 3.5 (11.5-1000) L 02/22/23 03:29 Hep B Core Total Ab Non-reactive (Nonreactive) 02/22/23 03:29 Hepatitis C Antibody Non-reactive (Nonreactive) 02/22/23 03:29 HIV 1&2 Ab & HIV 1 Ag Non-reactive (Non-Reactiv) 02/22/23 03:29 HIV 1&2 Antibody Non-reactive (Non-Reactiv) 02/22/23 03:29 Influenza Type A Ag negative (Negative) 02/20/23 16:50 Influenza Type B Ag negative (Negative) 02/20/23 16:50 SARS-CoV-2 Ag (Rapid) negative (Negative) 02/20/23 16:50 Procedures Performed None Vitals Last Vital Signs Temp 97.5 F L 02/27/23 12:00 Pulse 91 02/27/23 12:00 Resp 28 H 02/27/23 12:00 BP 138/101 02/27/23 12:00 Pulse Ox 94 02/27/23 12:00 O2 Del Method Nasal Cannula 02/27/23 12:00 O2 Flow Rate 3 02/25/23 20:00 Discharge Plan Discharge Patient Disposition: Home Condition: Stable Prescriptions: New metoprolol succinate 25 mg tablet extended release 24 hr 25 mg PO DAILY Qty: 90 0RF Lasix 40 mg tablet 40 mg PO BIDAC Qty: 60 1RF atorvastatin 40 mg Tablet 40 mg PO BEDTIME 90 Days Qty: 90 1RF Entresto 24-26 mg tablet 1 tab PO BID Qty: 60 1RF Continued aspirin 81 mg Tablet,Delayed Release (Dr/Ec) 81 mg PO DAILY finasteride 5 mg tablet 5 mg PO DAILY Discontinued lisinopril 20 mg tablet 20 mg PO DAILY simvastatin 20 mg tablet 20 mg PO DAILY Januvia 100 mg tablet 100 mg PO DAILY Discharge Orders: Discharge Order (Routine); Ordered 02/27/23 Ordered By: Connor Siddiqui Referrals: Ro Cortez, PERISHABLE FRUIT INSPECTOR [Nurse Practitioner] - 4-7 days (Please call Ro Cortez's Office on Thursday at [phone] to schedule a follow up appointment for 4-7 days. Thank you.) Discharge Diet: Cardiac, Diabetic and Low Salt Discharge Activity: Increase activity as tolerated Patient Instructions: Metoprolol (By mouth) (Lopressor, Toprol XL), Furosemide (By mouth) (Lasix), Atorvastatin (By mouth) (Lipitor, Atorvaliq), Sacubitril/Valsartan (By mouth) (Entresto), Heart Failure (DC), Tachycardia (GEN), CHF Stoplight, Opioid Safety Activity Restrictions/Additional Instructions: 1. Increase activity as tolerated. 2. Take medications as prescribed. 3. Limit total sodium intake to 2 grams or 2000 milligrams 4. Limit total fluid intake to 2 liters or 2000 milliliters. 5. Follow up with primary care provider at next available appointment. 6. Wear LifeVest until instructed otherwise by cardiology. Discharge Attestations Time Spent in Discharge Care*: greater than 30 min Quality Metrics Clinical Quality Measures [ No reported AMI, CVA or VTE this stay] Coding Level of Care Code Acute Code for Chg Fwd Diagnoses CHF (congestive heart failure) I50.9 Transaminitis R74.01 HTN (hypertension) I10 SPRING (acute kidney injury) N17.9 Diabetes E11.9
--- NOTE | 2023-02-27 16:06 | PC.NURSE ---
Discharge Note Patient discharged to home via POV accompanied by family. Discharge instructions reviewed with patient and/or hvac sales representative. Mobile pharmacy medications and/or prescriptions provided. Belongings/home medications returned.
== END 2023-02-27 16:07 | disposition home or self-care (01) | DRG 291 ==
LOC: ER 18:12 → CSU 18:22
PROVIDERS: Admitting Provider Student in an Organized Health Care Education/Training Program; Emergency Provider Internal Medicine; Visit Provider Internal Medicine
DX: I13.0 Hypertensive heart and chronic kidney disease with heart failure and stage 1 through stage 4 chronic kidney disease, or unspecified chronic kidney disease (principal); I50.23 Acute on chronic systolic (congestive) heart failure; N17.9 Acute kidney failure, unspecified; I47.20 Ventricular tachycardia, unspecified; E87.20 Acidosis, unspecified; N18.9 Chronic kidney disease, unspecified; E11.22 Type 2 diabetes mellitus with diabetic chronic kidney disease; Z11.52 Encounter for screening for COVID-19; I42.9 Cardiomyopathy, unspecified; Z79.82 Long term (current) use of aspirin; E78.00 Pure hypercholesterolemia, unspecified; I37.1 Nonrheumatic pulmonary valve insufficiency; Z79.4 Long term (current) use of insulin; R94.6 Abnormal results of thyroid function studies
CPT/HCPCS: 36415; 36416; 51702; 71045; 71275; 76604; 76705; 78452; 80053; 80061; 80069; 80306; 80307; 81001; 82436; 82570; 82607; 82746; 82962; 83036; 83540; 83550; 83615; 83735; 83880; 84100; 84133; 84145; 84300; 84439; 84443; 84481; 84484; 85025; 85378; 85610; 85730; 85999; 86140; 86403; 86705; 86706; 86709; 86803; 87086; 87340; 87426; 87804; 87806; 93005; 93306; 94760; 96372; 96374; 96375; 96376; 97116; 97161; 99285; A9270; A9500; G0378; J1250; J1644; J1815; J1940; J2785; Q9967

== ENCOUNTER → 2023-03-11 10:21 | Outpatient (BNVA) | payer MEDICARE, SELFPAY | PROVIDERS: Visit Provider Nurse Practitioner Family | DX: I11.0 Hypertensive heart disease with heart failure (principal); I50.20 Unspecified systolic (congestive) heart failure; I42.8 Other cardiomyopathies | CPT/HCPCS: 36415; 80048; 83880; 99214 ==

== ENCOUNTER → 2023-03-30 16:34 | Outpatient (BNVA) | payer MEDICARE, SELFPAY | PROVIDERS: Visit Provider Internal Medicine | DX: I10 Essential (primary) hypertension (principal); I48.91 Unspecified atrial fibrillation; I50.20 Unspecified systolic (congestive) heart failure; R58 Hemorrhage, not elsewhere classified | CPT/HCPCS: 36415; 80048; 83880; 85025; 85610; 99215 ==

== ENCOUNTER 2023-04-15 05:49 | Outpatient (CLI) | payer MEDICARE, SELFPAY ==
[2023-04-15] VITALS (11 sets, daily range): BP systolic 95–116; BP diastolic 56–79; PULSE 72–83; RESP 12–17; TEMP 37.1; O2SAT 93–99; BMI 25.7
--- NOTE | 2023-04-15 06:00 | XACV_ITS ---
Exam Room: 2 Ht: 188 cm Wt: 91 kg BSA: 2.18 m2 Gender: Male : 1935 Any Known Allergies: No known allergies Exam Priority: Routine Procedure(s): Procedure Description: Diagnostic procedure Procedure Description: Right Heart Catheterization Procedure Description: O2 saturation Procedure Description: Coronary Angiography Procedure Description: Pressure Wire Diagnostic Cath Status: Elective Diagnostic Findings * Left Main has no significant disease. * Dual LAD system. Diagonal artery is larger branch and has mild luminal irregularity. LAD is small and diffusely diseased. It has mid segment 80% stenosis. . * Mid Right Coronary Artery: moderate 50% stenosis, DI: 3 flow. * Proximal Circumflex to Mid Circumflex: total occlusion, DI: 0 flow. * Coronary angiography shows right dominance. Interventional Findings * Procedure detail: We engaged RCA with JR4 guide catheter. IV heparin was administered to maintain anticoagulation. After normalization, IFR wire was advanced into distal RCA. iFR value of 0.96 was obtained. As it was nonischemic, medical therapy was decided. iFR wire and guide catheter were removed. Patient left the Claims Account Specialist in a stable condition.. Conclusions 1. Severe multivessel CAD. 2. Ischemic cardiomyopathy. 3. Elevated right and left sided pressures. 4. Moderate RCA stenosis s/p iFR with a non-ischemic value of 0.96. 5. LAD has mid vessel stenosis however it is a small-medium sized vessel and is diffusely diseased with poor outflow. Stenting at this location likely will compromise larger, mostly disease-free diagonal artery ( main vessel of dual LAD system). Medical therapy. Recommendations * Aggressive guideline directed medical therapy for heart failure. * Continue diuresis. * Outpatient cardiology follow-up in 2 to 4 weeks. Diagnostic RX Recommendation: medical therapy and/or counseling Pressures Phase:Rest AO : 96 / 54 ( 70 ) @ 8:39:00 AM 93 / 59 ( 72 ) @ 8:44:00 AM 103 / 62 ( 77 ) @ 8:48:00 AM RV : 42 / 2 / 10 @ 8:33:00 AM PA : 43 / 15 ( 25 ) @ 8:31:00 AM RA : a wave = 12 v wave = 11 mean = 9 @ 8:33:00 AM PCW : a wave = 20 v wave = 31 mean = 22 @ 8:31:00 AM O2 Content Phase:Rest PA : O2 Content O2: 66.8 @ 8:39:00 AM Saturations Phase:Rest AO : 94 @ 8:44:00 AM PA : 67 @ 8:39:00 AM Cardiac Output Phase:Rest Richard : 5 @ 9:12:36 AM Richard Cardiac Index: 2 @ 9:12:36 AM Flow Phase:Rest Qp : 5 @ 9:12:36 AM Qs : 5 @ 9:12:36 AM Clinical Evaluation EBL: 5mL-10mL Procedural Details Procedure Consent Obtained. Admit Source: Out Patient. Pre-Procedure Time Out. Identified patient by full name and date of as verbalized by the patient/guarantor. Does the consent match the physician's order: Yes. Accurate & Complete Informed Consent: Yes. Inpatient/Outpatient History & Physical on Chart: Yes. If H&P is completed, is and addenduem needed: No; If yes, is the addendum complete: N/A. Visualize and Verify Site with Patient/Guarantor: N/A. Relevant Radiology Images available: N/A. The risks, benefits, and alternatives of sedation and/or procedure were discussed by physician. The patient agrees to continue. Procedure started. [facility] Clinical Fraility Score: 5: Mildly Frail. Claims Account Specialist Indications: LV Dysfunction. Chest Pain Symptom Assessment: Asymptomatic. Correct patient, site and procedure confirmed by cath team. Current diagnosis: New onset heart failure. PERRLA. Strong, equal hand boiler plant operator bilaterally. Lungs clear x 5 lobes. IV Site on Arrival: 20 gauge in the left anticubital. IV Site on Arrival: 20 gauge in the right anticubital. IV Fluids: 0.9% NaCl at 75ml/hr. 200 mL infused prior to labor utilization superintendent. Pre Procedural Pulses: bilateral radial was 3+. Pre Procedural Pulses: bilateral posterior tibial was Doppled. Pre Procedural Pulses: bilateral dorsalis pedis was Doppled. right radial was prepped with chloroprep then draped in the usual sterile fashion. right groin was prepped with chloroprep then draped in the usual sterile fashion. right brachial was prepped with chloroprep then draped in the usual sterile fashion. Physician notified. Baseline sample Acquired. HR: 87 BPM. Physician arrived. Physician scrubbed in. Immediate Pre-Procedure Time Out. Correct Patient: Yes; Correct Procedure: Yes; Correct Site: Yes; Correct Patient Position: Yes; Correct Supplies: Yes; Dried Flammable Prep: Yes; Blood Products Available: No;. Lidocaine 1% infiltrated to the right brachial. [place] MON catheter inserted. Centereach guidewire advance through swan catheter. Centereach wire out. Oximetry samples were obtained. Normal venous range: 60-85%. Normal arterial range: 95-100%. Pressure measurements obtained. [place] out. Lidocaine 1% infiltrated to the right radial. Arterial access obtained. ABG drawn and sent with respiratory therapy. Oxygen started at 2liters/min via nasal canula. A 5 yi TIG catheter in over wire. Multiple views taken of left coronary artery. Catheter redirected to the RCA. Catheter removed over the exchange wire. A 5 yi JR4 catheter in over wire. Multiple views taken of right coronary artery. Catheter removed over the exchange wire. 6 yi JR 4 guide catheter was inserted over the wire. iFR pressure wire advanced to lesion in mid RCA. iFR wire advanced across lesion to distal RCA. iFR measurement 0.96 mmHg. Angiography performed. Guide catheter out. A TR Band was successful obtaining hemostatsis at the Right Radial artery insertion site. A Manual Compression was successful obtaining hemostatsis at the Right Brachial Vein insertion site. Post Procedure: Pulses reassessed and unchanged. PERRLA. Strong, equal hand boiler plant operator bilaterally. No VTE prophylaxis required. Medication's Wasted: Lidocaine 1% = 2 mL. Medication's Wasted: Nitro = 49.8 mg. Medication's Wasted: Other = Fentanyl 100mcg, Versed 1 mg. Total IV fluids: 45 mL. Post-op diagnosis: Multivessel CAD, PRIVATE MORTGAGE BANKER SAFE Circumflex and PLV. Subtotal occlusion of mid LAD. Complications: None. Estimated blood loss: 5mL-10mL. Responsiveness - Normal response to verbal stimuli; alert and oriented, PERRLA. Airway - Unaffected, no intervention required; spontaneous ventilation. Circulation: W/N/L, pulses unchanged. Nausea/Vomiting: No. Procedure completed. Patient transferred by wheelchair to CPRU. Vital chart was stopped. Access Site Site: Right Brachial Vein Sheath Size: 6 Fr Hemostasis Method: Manual Compression Hemostasis Success: Successful Site: Right Radial artery Sheath Size: 6 Fr Hemostasis Method: TR Band Hemostasis Success: Successful Procedure Medications Start: 8:22 AM Stop: 8:22 AM Medication: Versed Amount: 1 mg Route: I.V. Start: 8:38 AM Stop: 8:38 AM Medication: Nitrogylcerin Amount: 200 mcg Route: I.A. Start: 8:39 AM Stop: 8:39 AM Medication: Heparin Amount: 5000 units Route: I.V. Start: 8:50 AM Stop: 8:50 AM Medication: Heparin Amount: 1000 units Route: I.V. I, the attending physician, have reviewed and verified all procedure medications. Yes, all medications given per verbal order History/Risk Factors Hypertension: Yes Dyslipidemia: No Peripheral Arterial Disease (PAD): No Myocardial Infarction (MT): No Obesity: No Prior Interventions PCI: No CABG: No Valve Surgery: No Report Signatures Finalized by Everardo Bolanos MD on 04/19/2023 04:19 PM
[2023-04-15] MEDS: diphenhydrAMINE 50 mg Capsule PO (06:10)
[2023-04-15] MEDS: aspirin 325 mg Tablet PO (06:10)
[2023-04-15 06:26] LABS: Glucose Point of Care 137 mg/dL (70-110)
[2023-04-15 06:45] LABS: Anion Gap 18.7 (5-19); Blood Urea Nitrogen 28 mg/dL (8-23); Calcium 9.2 mg/dL (8.5-10.5); Carbon Dioxide 25 mmol/L (22-29); Chloride 101 mmol/L (98-107); Glucose 147 mg/dL (65-115); Osmolality Calculated 300 mOsm/kg (285-295); Potassium 3.7 mmol/L (3.5-5.1); Sodium 141 mmol/L (136-145)
[2023-04-15 06:47] LABS: Basophils # 0.1 10^3/uL (0.0-0.1); Basophils % 0.9 %; Eosinophils # 0.3 10^3/uL (0.0-0.8); Eosinophils % 4.4 %; Hematocrit 42.5 % (37-53); Lymphocytes # 1.7 10^3/uL (0.8-4.8); Lymphocytes % 25.4 %; Mean Corpuscular HGB Conc 32.2 g/dL (30-55); Mean Corpuscular Hemoglobin 29.4 pg (27-33); Mean Corpuscular Volume 91.2 fl (82-101); Mean Platelet Volume 11.7 fL (7.4-10.4); Monocytes # 0.6 10^3/uL (0.2-0.9); Monocytes % 9.2 %; Nucleated Red Blood Cells % 0 %; Platelet Count 153 10^3/cmm (157-399); Red Blood Count 4.66 10^6/uL (3.85-5.65); Red Cell Distribution Width 15.2 % (12.1-15.1); White Blood Count 6.84 10^3/uL (3.29-11.43)
--- NOTE | 2023-04-15 08:22 | W.PM.OPSUD ---
Surgery/Procedure H&P Update DATE OF PROCEDURE: April 15, 2023 DATE H&P PERFORMED: 03/30/23 H&P UPDATE INFORMATION: I have reviewed H&P completed within last 30 days, I have examined patient prior to procedure and No changes to prior documentation PREOP DIAGNOSIS: New onset congestive heart failure/ LV dysfunction PRIMARY INDICATION FOR PROCEDURE: New onset congestive heart failure/ LV dysfunction PLANNED PROCEDURE: Operation Date: 04/15/23 07:00 Proposed Procedures p Right and Left Heart Cath 91256,i50.20,i48.9(Bilateral) - Everardo Bolanos M.D PATIENT REASSESSED PRIOR TO SEDATION, WITH NO CHANGE NOTED: Yes PHYSICAL EXAM: alert, oriented x 3, clear to auscultation bilaterally and regular rate & rhythm AIRWAY EVAL/ANESTHESIA PLAN: normal airway, ASA III, Local Anesthesia, Risks, benefits & alternatives of sedation and/or procedure discussed and Patient agrees to continue as planned ADDITIONAL INFORMATION: Moderate sedation
[2023-04-15 08:49] LABS: Arterial Blood Gas Hematocrit 41.1 % (42-52); Blood Gas Operator Identificat GD; Blood Gas Sample Site Femoral, right; Blood Gas Sample Type Not specified; Carboxyhemoglobin 1.2 %THgb (0.4-20.1); HGB O2 Sat 93.8 % (95-100); Methemoglobin 0.2 % (0.4-1.5); Oxygen Device ROOM AIR; Total Hemoglobin 13.4 g/dL (14-18)
[2023-04-15 08:51] LABS: Arterial Blood Gas Hematocrit 40.8 % (42-52); Blood Gas Operator Identificat GD; Blood Gas Sample Site Not specified; Carboxyhemoglobin 1.3 %THgb (0.4-20.1); HGB O2 Sat 66.8 % (95-100); Methemoglobin 0.2 % (0.4-1.5); Oxygen Device ROOM AIR; Total Hemoglobin 13.3 g/dL (14-18)
[2023-04-15 08:52] LABS: Blood Gas Sample Type Venous
--- NOTE | 2023-04-15 10:00 | SUR.PHASEII ---
Letting the air out of the TR band per protocol.
--- NOTE | 2023-04-15 10:31 | SUR.PHASEII ---
Addendum entered by Carolina Johnson RN 04/15/23 10:33: time edited to 0900 Original Note: Received the patient back from the propagator laborer via bed s/p Diagnostic [facility]. A & 0 x 3. automatic grinder operator placed and vital signs obtained. TR band intact to the right wrist. A 1cm bruised was marked with a marker from a small hematoma in the propagator laborer. Currently soft with no more bleeding noted. Palpable radial pulse. No other assessment changes noted from pre cath assessment. Family at bedside. No concerns voiced at this time.
--- NOTE | 2023-04-15 11:00 | SUR.PHASEII ---
TR band off. No bleeding or hematoma noted. Palpable radial pulse. Area cleansed with warm water and patted dry. A large band aide was applies to the site and loosely secured with coban. Activity instructions given to the patient and his family. They verbalized their understanding.
== END 2023-04-15 05:50 | disposition home or self-care (01) ==
PROVIDERS: PCP Family Medicine; Visit Provider Internal Medicine
DX: I25.10 Atherosclerotic heart disease of native coronary artery without angina pectoris (principal); I25.5 Ischemic cardiomyopathy; N17.9 Acute kidney failure, unspecified; I13.0 Hypertensive heart and chronic kidney disease with heart failure and stage 1 through stage 4 chronic kidney disease, or unspecified chronic kidney disease; N18.9 Chronic kidney disease, unspecified; Z79.82 Long term (current) use of aspirin; I50.20 Unspecified systolic (congestive) heart failure
CPT/HCPCS: 36415; 36416; 80048; 82810; 82962; 85025; 93456; 93571; 96361; 96365; 99152; 99153; C1751; C1769; C1887; C1894; J1644; J2250; J3010; J3490; J7030; Q0163; Q9967

== ENCOUNTER → 2023-04-22 08:50 | Outpatient (BNVA) | payer MEDICARE, SELFPAY | PROVIDERS: PCP Family Medicine; Visit Provider Nurse Practitioner Family | DX: I25.10 Atherosclerotic heart disease of native coronary artery without angina pectoris (principal); I11.0 Hypertensive heart disease with heart failure; I50.20 Unspecified systolic (congestive) heart failure | CPT/HCPCS: 36415; 80048; 99214 ==

== ENCOUNTER 2023-05-26 09:45 | Outpatient (CLI) | payer MEDICARE, SELFPAY ==
--- NOTE | 2023-05-26 10:00 | USCV_ITS ---
EdJake massey Age: 87 Gender: M : 1935 Exam Date: 05/26/2023 10:39 Ordering Phys: Ro Cortez Technologist: JASPAL Exam Location: [facility] [place] Indication: EVAUL FOR DEFIB BP: / HR: 60 Rhythm: Sinus Technical Quality: Adequate MEASUREMENTS (Male / Female) Normal Values 2D ECHO LV Diastolic Diameter PLAX 5.9 cm 4.2 - 5.9 / 3.9 - 5.3 cm LV Systolic Diameter PLAX 5.7 cm LV Chamber Size 5.3 cm IVS Diastolic Thickness 1.5 cm 0.6 - 1.0 / 0.6 - 0.9 cm IVS Systolic Thickness 1.3 cm LVPW Diastolic Thickness 1.2 cm 0.6 - 1.0 / 0.6 - 0.9 cm LVPW Systolic Thickness 1.3 cm RV Chamber Size 3.6 cm LVOT Diameter 2.1 cm LV Ejection Fraction 2D Teich 10.9 % LV Ejection Fraction MOD 2C 29.9 % LV Ejection Fraction 2C AL 31.5 % LA Diameter 3.5 cm LA Width 3.4 cm LA Height 4.6 cm RA Width 3.9 cm RA Height 5.5 cm Aorta at Sinotubular Diameter 3.4 cm IVC Diameter 1.3 cm M-MODE Aortic Annulus Diameter 4.3 cm LA Ao Ratio MM 0.8 FINDINGS Left Ventricle Right Ventricle Right Atrium Left Atrium Mitral Valve Aortic Valve Tricuspid Valve Pulmonic Valve Pericardium Aorta IVC CONCLUSIONS LV systolic function is severely reduced with EF of 25 to 30%. Severe global hypokinesis seen. Compared to prior echocardiogram LV systolic function has improved slightly. Everardo Bolanos MD (Electronically Signed) Final Date: 28 May 2023 12:41 S
== END 2023-05-26 09:46 | disposition home or self-care (01) ==
LOC: RAD 09:47
PROVIDERS: PCP Family Medicine; Visit Provider Nurse Practitioner Family
DX: I50.20 Unspecified systolic (congestive) heart failure (principal)
CPT/HCPCS: 93308

== ENCOUNTER → 2023-06-30 13:14 | Outpatient (BNVA) | payer MEDICARE, SELFPAY | PROVIDERS: PCP Family Medicine; Visit Provider Internal Medicine | DX: I11.0 Hypertensive heart disease with heart failure (principal); I50.20 Unspecified systolic (congestive) heart failure | CPT/HCPCS: 99214 ==

== ENCOUNTER → 2023-12-29 14:35 | Outpatient (BNVA) | payer MEDICARE, SELFPAY | PROVIDERS: PCP Family Medicine; Visit Provider Internal Medicine | DX: I11.0 Hypertensive heart disease with heart failure (principal); I50.20 Unspecified systolic (congestive) heart failure | CPT/HCPCS: 99214 ==